=== PATIENT | female | born 1990 | race Caucasian/White ===

== ENCOUNTER 2018-02-04 21:23 | Inpatient (IN) | payer SELFPAY ==
[~2018-02-04] VITALS: Ht 167.6 cm; Wt 65.6 kg
[2018-02-04] VITALS (7 sets, daily range): BP systolic 124–138; BP diastolic 81–99; PULSE 65–99; RESP 16; TEMP 96.4; O2SAT 95–100
[2018-02-04] MEDS ORDERED: FLUMAZENIL 0.5 MG/5 ML VIAL ONE (21:31)
[2018-02-04] MEDS ORDERED: ETOMIDATE 40 MG/20 ML VIAL ONE (21:35)
[2018-02-04] MEDS ORDERED: PROPOFOL 1000 MG/100 ML INJ 100 ML ONE (21:41)
[2018-02-04] MEDS ORDERED: SODIUM CHLOR 0.9% 1000 ML INJ 1,000 ML IV ONE (21:45)
[2018-02-04] MEDS ORDERED: SUCCINYLCHOLINE CHLORIDE 100 MG/5 ML SYRINGE IV PUSH ONE (21:45)
[2018-02-04] MEDS ORDERED: PROPOFOL 1000 MG/100 ML INJ 100 ML IV PRN (21:45)
[2018-02-04] MEDS ORDERED: NALOXONE HCL 2 MG/2 ML VIAL IV PUSH ONE (21:45)
--- NOTE | 2018-02-04 21:56 | PD ---
HPI Chief Complaint: OD/ Ingestion Time Seen by Provider: 21:40 Travel History International Travel<30 days: No Contact w/Intl Traveler<30days: No Traveled to known affect area: No History of Present Illness HPI Per EMS patient was found poorly responsive with a GCS of 3, they were unable to start an IV, they gave 2 mg of Narcan IM into her thigh, without any response. They continue to bring the patient over to the emergency department for further care. Unable to obtain any further information due to the patient' s condition PFS Past Medical History Medical History: Unable to Obtain Diminished Hearing: No Tetanus Vaccination: Unknown ?: Unknown LMP: unk Past Surgical History Surgical History: Unable to Obtain Social History Alcohol Use: Yes Tobacco Use: Yes Substance Use: Yes Allergies-Medications (Allergen,Severity, Reaction): Coded Allergies: No Allergy Information Available (Unverified , 02/04/18) GCS Review of Systems ROS Limitations: Clinical Condition, Altered Mental Status General / Constitutional: No: Fever Eyes: No: Visual changes HENT: No: Headaches Cardiovascular: Positive: Palpitations Respiratory: Positive: Shortness of Breath Gastrointestinal: No: Abdominal Pain Genitourinary: No: Dysuria Musculoskeletal: No: Pain Skin: No Rash Neurologic: No: Weakness Psychiatric: No: Depression Endocrine: No: Polydipsia Hematologic/Lymphatic: No: Easy Bruising Physical Exam Narrative GENERAL: SKIN: Warm and dry. HEAD: Atraumatic. Normocephalic. EYES: Pupils equal and round. No scleral icterus. No injection or drainage. Dilated pupils 6 mm bilaterally ENT: No nasal bleeding or discharge. Mucous membranes pink and moist. Patient was not clearing her or tolerating her oral secretions well, making gagging noises NECK: Trachea midline. No JVD. CARDIOVASCULAR: Tachycardic rate but regular rhythm RESPIRATORY: No accessory muscle use. CRACKLES TO RLL (POSS ASPIRATION) GASTROINTESTINAL: Abdomen soft, non-tender, nondistended. MUSCULOSKELETAL: Extremities without clubbing, cyanosis, or edema. No obvious deformities. NEUROLOGICAL: Patient arrived with a GCS of 8, not improving despite the use of Narcan and Romazicon. Patient not protecting her airway and not tolerating her own oral secretions decision made to intubate to guard airway Data Data Last Documented VS Vital Signs Date Time Temp Pulse Resp B/P (MAP) Pulse Ox O2 Delivery O2 Flow Rate FiO2 02/04/18 23:09 65 128/99 (109) 100 Ventilator 02/04/18 22:53 16 4.00 02/04/18 21:52 96.4 02/04/18 21:40 50 Orders Orders Flumazenil Inj (Romazicon Inj) (02/04/18 21:31) Etomidate Inj (Amidate Inj) (02/04/18 21:35) Chest, Single Ap (02/04/18 ) Propofol 1000 Mg/100 Ml Inj (Diprivan 10 (02/04/18 21:41) Electrocardiogram (02/04/18 21:40) Complete Blood Count With Diff (02/04/18 21:40) Comprehensive Metabolic Panel (02/04/18 21:40) Troponin I (02/04/18 21:40) Prothrombin Time / Inr (Pt) (02/04/18 21:40) Act Partial Throm Time (Ptt) (02/04/18 21:40) Arterial Blood Gas (Abg) (02/04/18 21:40) Blood Culture (02/04/18 21:40) Lipase (02/04/18 21:40) Urinalysis - C+S If Indicated (02/04/18 21:40) Thyroid Stimulating Hormone (02/04/18 21:40) Ct Brain W/O Iv Contrast(Rout) (02/04/18 21:40) Iv Access Insert/Monitor (02/04/18 21:40) Ecg Monitoring (02/04/18 21:40) Oxygen Administration (02/04/18 21:40) Oximetry (02/04/18 21:40) Urinary Catheter Insert/Apply (02/04/18 21:40) Latesha-Gastric Tube Insert/Mon (02/04/18 21:40) Ed Urine Pregnancytest Poc (02/04/18 21:40) Drug Screen, Random Urine (02/04/18 21:40) Alcohol (Ethanol) (02/04/18 21:40) Salicylates (Aspirin) (02/04/18 21:40) Tylenol (Acetaminophen) (02/04/18 21:40) Propofol 1000 Mg/100 Ml Inj (Diprivan 10 (02/04/18 21:45) Naloxone Inj (Narcan Inj) (02/04/18 21:45) Succinylcholine Inj (Quelicin Inj) (02/04/18 21:45) Sodium Chlor 0.9% 1000 Ml Inj (Ns 1000 M (02/04/18 21:45) Lactic Acid Sepsis Protocol (02/04/18 21:45) Labs Laboratory Tests Test 02/04/18 22:00 02/04/18 22:09 02/04/18 22:25 White Blood Count 10.7 TH/MM3 Red Blood Count 5.62 MIL/MM3 Hemoglobin 17.1 GM/DL Hematocrit 50.8 % Mean Corpuscular Volume 90.4 FL Mean Corpuscular Hemoglobin 30.5 PG Mean Corpuscular Hemoglobin Concent 33.7 % Red Cell Distribution Width 14.6 % Platelet Count 369 TH/MM3 Mean Platelet Volume 9.5 FL Neutrophils (%) (Auto) 79.0 % Lymphocytes (%) (Auto) 12.7 % Monocytes (%) (Auto) 7.0 % Eosinophils (%) (Auto) 0.9 % Basophils (%) (Auto) 0.4 % Neutrophils # (Auto) 8.4 TH/MM3 Lymphocytes # (Auto) 1.4 TH/MM3 Monocytes # (Auto) 0.8 TH/MM3 Eosinophils # (Auto) 0.1 TH/MM3 Basophils # (Auto) 0.0 TH/MM3 CBC Comment DIFF FINAL Differential Comment Prothrombin Time 10.2 SEC Prothromb Time International Ratio 1.0 RATIO Activated Partial Thromboplast Time 25.7 SEC Urine Color YELLOW Urine Turbidity CLEAR Urine pH 5.0 Urine Specific [place] 1.009 Urine Protein NEG mg/dL Urine Glucose (UA) NEG mg/dL Urine Ketones 20 mg/dL Urine Occult Blood NEG Urine Nitrite NEG Urine Bilirubin NEG Urine Urobilinogen LESS THAN 2 mg/dL Urine Leukocyte Esterase NEG Urine RBC 1 /hpf Urine WBC LESS THAN 1 /hpf Urine Squamous Epithelial Cells <1 /hpf Urine Hyaline Casts 1 /lpf Urine Mucus FEW /lpf Microscopic Urinalysis Comment CULT NOT INDICATED Blood Urea Nitrogen 9 MG/DL Creatinine 0.90 MG/DL Random Glucose 80 MG/DL Total Protein 10.2 GM/DL Albumin 4.7 GM/DL Calcium Level 10.4 MG/DL Alkaline Phosphatase 66 U/L Aspartate Amino Transf (AST/SGOT) 112 U/L Alanine Aminotransferase (ALT/SGPT) 106 U/L Total Bilirubin 0.7 MG/DL Sodium Level 140 MEQ/L Potassium Level 4.0 MEQ/L Chloride Level 104 MEQ/L Carbon Dioxide Level 23.8 MEQ/L Anion Gap 12 MEQ/L Estimat Glomerular Filtration Rate 74 ML/MIN Troponin I LESS THAN 0.02 NG/ML Lipase 111 U/L Thyroid Stimulating Hormone 3rd Gen 0.362 uIU/ML Urine Opiates Screen POS Acetaminophen Level LESS THAN 2.0 MCG/ML Urine Barbiturates Screen NEG Urine Amphetamines Screen POS Urine Benzodiazepines Screen NEG Urine Cocaine Screen POS Urine Cannabinoids Screen NEG Ethyl Alcohol Level LESS THAN 3 MG/DL Blood Gas Puncture Site RT RADIAL Blood Gas Patient Temperature 98.6 Blood Gas HCO3 25 mmol/L Blood Gas Base Excess 1.0 mmol/L Blood Gas Oxygen Saturation 94 % Arterial Blood pH 7.43 Arterial Blood Partial Pressure CO2 38 mmHg Arterial Blood Partial Pressure O2 75 mmHG Arterial Blood Oxygen Content 21.3 Vol % Arterial Blood Carboxyhemoglobin 1.5 % Arterial Blood Methemoglobin 0.5 % Blood Gas Hemoglobin 16.1 G/DL Oxygen Delivery Device VENTILATOR Blood Gas Ventilator Setting PRVC/AC Blood Gas Inspired Oxygen 50 % Lactic Acid Level 1.5 mmol/L MDM Medical Decision Making Medical Screen Exam Complete: Yes Emergency Medical Condition: Yes Medical Record Reviewed: Yes Differential Diagnosis Altered mental status due to possible heroin overdose versus benzo overdose versus electrolyte abnormalities versus intracranial hemorrhage versus sepsis versus pneumonia versus UTI Narrative Course CBC shows no leukocytosis, no left shift, hemoconcentration 17/51, platelet count within normal limits of 369,005 ABG after intubation shows a pH of 7.43/PCO2 38/PaO2 of 75 and that was on PRVC 50% FiO2 on a ventilator Coagulation profile is within normal limits UA is not consistent with a UTI Electrolytes are all within normal limits, normal kidney and pancreatic functions. TSH screen was within normal limits Slight elevations of the patient's AST 112, ALT 106, but with normal bilirubin of 0.7 and alkaline phosphatase of 66 Lactic acid 1.5 First set of cardiac enzymes negative Tox screen was positive for opiates amphetamines and cocaine Critical Care Narrative CRITICAL CARE NOTE: With evaluation of the patient, labs, EKG, receipt of radiologic studies, administration of medications, reevaluation the patient and discussion of the patient with the admitting physicians, the total critical care time was [45] minutes. Time to perform other separately billable procedures was not included in the critical care time. Procedures Procedure Narrative After the risks and benefits were discussed the following procedure was performed: INTUBATION: The patient was put in optimal position for the procedure. Rapid sequence intubation was initiated by me using [20] milligrams of etomidate IV and 100 milligrams of succinylcholine IV. The patient was intubated with a [7.5 ] cuffed endotracheal tube. Tube placement was confirmed by visualization of the tube and balloon passing through the cords, capnometry and subsequent chest x-ray. Breath sounds were equal and well aerated bilaterally postintubation. No borborygmi heard over stomach. Patient tolerated procedure well. Diagnosis Primary Impression: Altered mental status possible overdose requiring intubation Additional Impression: Polysubstance abuse Admitting Information Admitting Physician Requests: Admit Yonny Tillman MD Feb 04, 2018 21:56
[2018-02-04 22:27] LABS: AUTOMATED NEUTROPHIL # 8.4 TH/MM3 (1.8-7.7); BASOPHIL % 0.4 % (0.0-2.0); EOSINOPHIL # 0.1 TH/MM3 (0-0.4); EOSINOPHIL % 0.9 % (0.0-4.0); HEMATOCRIT 50.8 % (35.0-46.0); HEMOGLOBIN 17.1 GM/DL (11.6-15.3); LYMPH % 12.7 % (9.0-44.0); LYMPHOCYTE # 1.4 TH/MM3 (1.0-4.8); MEAN CELL VOLUME 90.4 FL (80.0-100.0); MEAN CORPUSCULAR HEMOGLOBIN 30.5 PG (27.0-34.0); MEAN CORPUSCULAR HGB CONC 33.7 % (32.0-36.0); MEAN PLATELET VOLUME 9.5 FL (7.0-11.0); MONOCYTE # 0.8 TH/MM3 (0-0.9); PLATELET COUNT 369 TH/MM3 (150-450); RED BLOOD COUNT 5.62 MIL/MM3 (4.00-5.30); RED CELL DISTRIBUTION WIDTH 14.6 % (11.6-17.2); WHITE BLOOD COUNT 10.7 TH/MM3 (4.0-11.0)
--- NOTE | 2018-02-04 22:32 | RADRPT ---
EXAM DATE: 02/04/2018 10:29 PM EDT AGE/SEX: 28 years / Female INDICATIONS: Lower extremity swelling and short of breath for 3 days. CLINICAL DATA: This is the patient's initial encounter. Patient reports that signs and symptoms have been present for 1 day and indicates a pain score of Nonresponsive. MEDICAL/SURGICAL HISTORY: Non-responsive. Abdominal aortic aneurysm repair. COMPARISON: No prior exams available for comparison. FINDINGS: A single AP view of the chest demonstrates the lungs to be symmetrically aerated without evidence of mass, infiltrate or effusion. Nasogastric tube with tip likely in stomach. There appears to be an end otracheal tube although its tip is not well seen which may be 4 cm from cecelia. The cardiomediastinal contours are unremarkable. Osseous structures are intact. CONCLUSION: No acute cardiopulmonary disease Electronically signed by: Enrique Tim MD 02/04/2018 10:30 PM EDT
[2018-02-04 22:38] LABS: PROTHROMBIN TIME - PATIENT 10.2 SEC (9.8-11.6)
[2018-02-04 22:42] LABS: ALBUMIN 4.7 GM/DL (3.4-5.0); AST (GOT) 112 U/L (15-37); BICARBONATE 23.8 MEQ/L (21.0-32.0); BLOOD UREA NITROGEN 9 MG/DL (7-18); CALCIUM 10.4 MG/DL (8.5-10.1); CHLORIDE 104 MEQ/L (98-107); GLOMERULAR FILTRATION RATE 74 ML/MIN (>89); GLUCOSE,RANDOM 80 MG/DL (74-106); SODIUM (NA) 140 MEQ/L (136-145)
[2018-02-04 22:54] LABS: ALKALINE PHOSPHATASE 66 U/L (45-117); ALT (GPT) 106 U/L (10-53); TOTAL BILIRUBIN ADULT 0.7 MG/DL (0.2-1.0); TOTAL PROTEIN 10.2 GM/DL (6.4-8.2); TROPONIN I LESS THAN 0.02 NG/ML (0.02-0.05)
[2018-02-04 22:58] LABS: ACETAMINOPHEN LESS THAN 2.0 MCG/ML (10.0-30.0)
[2018-02-04 23:09] LABS: BILIRUBIN, URINE NEG (NEG); BLOOD, URINE NEG (NEG); GLUCOSE,URINE NEG (NEG); HYALINE CAST, URINE 1 /lpf (RARE); KETONE, URINE 20 mg/dL (NEG); MUCUS URINE FEW /lpf (OCC); NITRITE,URINE NEG (NEG); SQUAMOUS EPITHELIAL CELL URINE <1 /hpf (0-5); URINE COLOR YELLOW (YELLW/STRAW); URINE LEUKOCYTE ESTERASE NEG (NEG)
--- NOTE | 2018-02-04 23:40 | HHI.HP ---
[facility] Service Critical Care Medicine Primary Care Physician Unknown Admission Diagnosis Overdose/polypharmacy Diagnosis: (1) Acute respiratory failure Diagnosis: Principal (2) Cocaine abuse Diagnosis: Principal (3) Encephalopathy acute Diagnosis: Principal (4) Polycythemia Diagnosis: Secondary (5) Serum calcium elevated Diagnosis: Secondary (6) Elevated transaminase level Diagnosis: Secondary (7) Opiate overdose Diagnosis: Principal (8) Amphetamine abuse Diagnosis: Principal (9) Elevated total protein Diagnosis: Secondary Chief Complaint: Patient found unresponsive Travel History International Travel<30 Days: No Contact w/Intl Traveler <30 Da: No Traveled to Known Affected Are: No History of Present Illness This is a 28-year-old female. Date of admission 02/04/2018. Past medical history is diet-controlled diabetes. Patient presents to [facility] of the following history. Per EMS report, patient was found unresponsive. GCS around 3. According to the people where she was found she has a known history of heroin use according to EMS. She had a bottle of baclofen 10 mg at her side. She received 2 mg IM naloxone in her right thigh without response. She received flumazenil 0.5 mg and naloxone 2 mg without response here at [facility]. She is emergently intubated with 40 mg etomidate and 100 mg succinylcholine. Patient's urine drug is positive for opiates, amphetamines and cocaine. Alcohol level less than 3. Elevated transaminases. She is currently on a propofol drip at 50 migrans per kilogram per minute. CT brain currently pending at time of dictation. She is very agitated and moves all 4 extremities spontaneously but not following commands. She has 2 noticeable track bhatia her left antecubital region. Dttet-[id number] urine screen negative Review of Systems ROS Limitations: Intubated Past Family Social History Allergies: Coded Allergies: No Allergy Information Available (Unverified , 02/04/18) GCS Past Medical History Diabetes mellitus Past Surgical History Appendectomy Reported Medications Unknown Active Ordered Medications Reviewed in EMR Family History Not previously documented Social History Urine drug screen positive for opiates/amphetamines and cocaine Physical Exam Vital Signs Vital Signs Date Time Temp Pulse Resp B/P (MAP) Pulse Ox O2 Delivery O2 Flow Rate FiO2 02/04/18 23:09 65 128/99 (109) 100 Ventilator 02/04/18 22:53 16 97 Nasal Cannula 4.00 02/04/18 22:52 84 16 124/99 (107) 100 Ventilator 02/04/18 22:34 85 132/99 (110) 98 Ventilator 02/04/18 22:08 99 134/94 (107) 98 Ventilator 02/04/18 21:52 96.4 90 16 138/87 (104) Ventilator 02/04/18 21:40 95 50 02/04/18 21:32 91 16 136/81 (99) 96 Physical Exam GENERAL: 28-year-old female currently orotracheally intubated SKIN: Warm and dry. Tattoo on dorsum right foot. To track bhatia in the left antecubital region. She has Enrike bandage around her right antecubital region. HEAD: Atraumatic. Normocephalic. EYES: Pupils equal and round about 4 mm bilaterally and reactive. No scleral icterus. No injection or drainage. ENT: No nasal bleeding or discharge. Mucous membranes pink and moist. NECK: Trachea midline. No JVD. CARDIOVASCULAR: Regular rate and rhythm. S1, S2. No S4. Possible 1/6 murmur RESPIRATORY: No accessory muscle use. Clear to auscultation. Breath sounds equal bilaterally. GASTROINTESTINAL: Abdomen soft, non-tender, nondistended. Hypoactive bowel sounds are appreciated MUSCULOSKELETAL: Extremities significant peripheral edema. No obvious deformities. NEUROLOGICAL: Cranial nerves II through XII appear to be grossly intact. Strength is 5 out of 5 and moves all 4 extremities spontaneously but not to command. Positive gag and cough and corneal reflex. Laboratory Laboratory Tests Test 02/04/18 22:00 02/04/18 22:09 02/04/18 22:25 White Blood Count 10.7 Red Blood Count 5.62 Hemoglobin 17.1 Hematocrit 50.8 Mean Corpuscular Volume 90.4 Mean Corpuscular Hemoglobin 30.5 Mean Corpuscular Hemoglobin Concent 33.7 Red Cell Distribution Width 14.6 Platelet Count 369 Mean Platelet Volume 9.5 Neutrophils (%) (Auto) 79.0 Lymphocytes (%) (Auto) 12.7 Monocytes (%) (Auto) 7.0 Eosinophils (%) (Auto) 0.9 Basophils (%) (Auto) 0.4 Neutrophils # (Auto) 8.4 Lymphocytes # (Auto) 1.4 Monocytes # (Auto) 0.8 Eosinophils # (Auto) 0.1 Basophils # (Auto) 0.0 CBC Comment DIFF FINAL Differential Comment Prothrombin Time 10.2 Prothromb Time International Ratio 1.0 Activated Partial Thromboplast Time 25.7 Urine Color YELLOW Urine Turbidity CLEAR Urine pH 5.0 Urine Specific [place] 1.009 Urine Protein NEG Urine Glucose (UA) NEG Urine Ketones 20 Urine Occult Blood NEG Urine Nitrite NEG Urine Bilirubin NEG Urine Urobilinogen LESS THAN 2 Urine Leukocyte Esterase NEG Urine RBC 1 Urine WBC LESS THAN 1 Urine Squamous Epithelial Cells <1 Urine Hyaline Casts 1 Urine Mucus FEW Microscopic Urinalysis Comment CULT NOT INDICATED Blood Urea Nitrogen 9 Creatinine 0.90 Random Glucose 80 Total Protein 10.2 Albumin 4.7 Calcium Level 10.4 Alkaline Phosphatase 66 Aspartate Amino Transf (AST/SGOT) 112 Alanine Aminotransferase (ALT/SGPT) 106 Total Bilirubin 0.7 Sodium Level 140 Potassium Level 4.0 Chloride Level 104 Carbon Dioxide Level 23.8 Anion Gap 12 Estimat Glomerular Filtration Rate 74 Troponin I LESS THAN 0.02 Lipase 111 Thyroid Stimulating Hormone 3rd Gen 0.362 Urine Opiates Screen POS Acetaminophen Level LESS THAN 2.0 Urine Barbiturates Screen NEG Urine Amphetamines Screen POS Urine Benzodiazepines Screen NEG Urine Cocaine Screen POS Urine Cannabinoids Screen NEG Ethyl Alcohol Level LESS THAN 3 Blood Gas Puncture Site RT RADIAL Blood Gas Patient Temperature 98.6 Blood Gas HCO3 25 Blood Gas Base Excess 1.0 Blood Gas Oxygen Saturation 94 Arterial Blood pH 7.43 Arterial Blood Partial Pressure CO2 38 Arterial Blood Partial Pressure O2 75 Arterial Blood Oxygen Content 21.3 Arterial Blood Carboxyhemoglobin 1.5 Arterial Blood Methemoglobin 0.5 Blood Gas Hemoglobin 16.1 Oxygen Delivery Device VENTILATOR Blood Gas Ventilator Setting PRVC/AC Blood Gas Inspired Oxygen 50 Lactic Acid Level 1.5 Date/Time Source Procedure Growth Status 02/04/18 22:25 Blood Peripheral Aerobic Blood Culture Pending Received 02/04/18 22:25 Blood Peripheral Anaerobic Blood Culture Pending Received Result Diagram: 02/04/18219902/04/18 220 Imaging Last Impressions Chest X-Ray 02/04/18 0000 Signed Impressions: CONCLUSION: No acute cardiopulmonary disease Septic Shock Reassessment Septic shock perfusion: reassessment completed Caprini VTE Risk Assessment Caprini VTE Risk Assessment: Mod/High Risk (score >= 2) Caprini Risk Assessment Model Point Value = 1 Point Value = 2 Point Value = 3 Point Value = 5 Age 41-60 Minor surgery BMI > 25 kg/m2 Swollen legs Varicose veins or History of unexplained or recurrent spontaneous Oral contraceptives or hormone replacement Sepsis (< 1 month) Serious lung disease, including pneumonia (< 1 month) Abnormal pulmonary function Acute myocardial infarction Congestive heart failure (< 1 month) History of inflammatory bowel disease Medical patient at bed rest Age 61-74 Arthroscopic surgery Major open surgery (> 45 min) Laparoscopic surgery (> 45 min) Malignancy Confined to bed (> 72 hours) Immobilizing plaster cast Central venous access Age >= 75 History of VTE Family history of VTE Factor V Leiden Prothrombin [id number] Lupus anticoagulant Anticardiolipin antibodies Elevated serum homocysteine Heparin-induced thrombocytopenia Other congenital or acquired thrombophilia Stroke (< 1 month) Elective arthroplasty Hip, pelvis, or leg fracture Acute spinal cord injury (< 1 month) Prophylaxis Regimen Total Risk Factor Score Risk Level Prophylaxis Regimen 0-1 Low Early ambulation 2 Moderate Order ONE of the following: *Sequential Compression Device (SCD) *Heparin 5000 units SQ BID 3-4 Higher Order ONE of the following medications: *Heparin 5000 units SQ TID *Enoxaparin/Lovenox 40 mg SQ daily (WT < 150 kg, CrCl > 30 mL/min) *Enoxaparin/Lovenox 30 mg SQ daily (WT < 150 kg, CrCl > 10-29 mL/min) *Enoxaparin/Lovenox 30 mg SQ BID (WT < 150 kg, CrCl > 30 mL/min) AND/OR *Sequential Compression Device (SCD) 5 or more Highest Order ONE of the following medications: *Heparin 5000 units SQ TID (Preferred with Epidurals) *Enoxaparin/Lovenox 40 mg SQ daily (WT < 150 kg, CrCl > 30 mL/min) *Enoxaparin/Lovenox 30 mg SQ daily (WT < 150 kg, CrCl > 10-29 mL/min) *Enoxaparin/Lovenox 30 mg SQ BID (WT < 150 kg, CrCl > 30 mL/min) AND *Sequential Compression Device (SCD) Assessment and Plan Assessment and Plan Neuro/Psych: Acute delirium/toxic metabolic encephalopathy UDS + opiates/cocaine and amphetamines Currently on propofol drip at 50 migrans per kilogram per minute. Fentanyl drip written for as well Goal of RA SS -[address] brain currently pending UDS + opiates/cocaine and amphetamines CV: Currently normal saline 84 cc an hour Not requiring vasopressors and/or antihypertensives 2D echocardiogram ordered with IV drug use Troponin less than 0.02 Resp: Acute respiratory failure [facility] 16/500/08/22/39 Ventilator bundle Albuterol/ipratropium aerosols every 4 hours with albuterol aerosols every 2 hours as needed dyspnea Spontaneous breathing trials when clinically indicated GI: Elevated transaminases Elevated total protein N.p.o. status NG/OGT to low intermittent wall suction Lansoprazole for GI prophylaxis Docusate sodium/senna 1 tablet twice daily for bowel regimen Check a hepatitis panel and CPK and recheck liver function tests in a.m. along with LDH : Varner catheter for accurate I's and O's in a critically ill patient Endo: Novulog sliding scale insulin/low regimen with Accu-Cheks every 6 hours to maintain euglycemia TSH 0.36 Renal: Creatinine currently within normal limits Monitor urine output Accurate I's and O Heme: Polycythemia -likely hemoconcentration Recheck CBC in a.m. Coags within normal ID: Blood cultures 2 ordered. UA negative for acute infection FEN: Hypercalcemia Replace electrolytes as clinically indicated per ICU electrolyte protocol Calcium will be checked in a.m. MSK: PT evaluate and treat Access Utilized peripheral IV. Central line if indicated- Prophylaxis -GI -lansoprazole -DVT -SCD/holding pharmacological prophylaxis pending CT brain Level 3 admission Code Status Full code Discussed Condition With ED physician. Dr. Tillman. Care plan discussed and all questions answered. No family available. Problem Qualifiers (1) Acute respiratory failure: Qualified Codes: J96.00 - Acute respiratory failure, unspecified whether with hypoxia or hypercapnia (2) Opiate overdose: Qualified Codes: T40.604A - Poisoning by unspecified narcotics, undetermined, initial encounter Villa Little MD Feb 04, 2018 23:40
[2018-02-04] MEDS ORDERED: SODIUM CHLOR 0.9% 1000 ML INJ 1,000 ML IV SCH (23:41)
[2018-02-04] MEDS ORDERED: POTASSIUM CHLOR 40 MEQ PREMIX 100 ML IV PRN ×2 (23:45)
[2018-02-04] MEDS ORDERED: DEXTROSE 50% IN WATER 50 ML VIAL(D50) IV PUSH PRN (23:45)
[2018-02-04] MEDS ORDERED: POTASSIUM PHOSPHATE MONOBASIC 500 MG TAB PO PRN (23:45)
[2018-02-04] MEDS ORDERED: SODIUM CHLORIDE 0.9% FLUSH 10 ML FLUSH IV FLUSH PRN (23:45)
[2018-02-04] MEDS ORDERED: POTASSIUM CHLOR 20 MEQ PREMIX 100 ML IV PRN (23:45)
[2018-02-04] MEDS ORDERED: SENNOSIDES 8.6 MG TAB PO PRN (23:45)
[2018-02-04] MEDS ORDERED: ONDANSETRON ODT 4 MG TAB PO PRN (23:45)
[2018-02-04] MEDS ORDERED: MAGNESIUM OXIDE 400 MG TAB PO PRN (23:45)
[2018-02-04] MEDS ORDERED: MAGNESIUM HYDROXIDE SUSP 30 ML CUP PO PRN (23:45)
[2018-02-04] MEDS ORDERED: SODIUM PHOSPHATE INJ 30 MMOL in SODIUM CHLOR 0.9% 250 ML INJ 240 ML IV PRN (23:45)
[2018-02-04] MEDS ORDERED: POTASSIUM CHLORIDE 25 MEQ EFFERVESCENT TAB PO PRN (23:45)
[2018-02-04] MEDS ORDERED: fentaNYL DRIP 250 ML IV PRN (23:45)
[2018-02-04] MEDS ORDERED: NURSING INFORMATION XX SCH (23:45)
[2018-02-04] MEDS ORDERED: CHLORHEXIDINE GLUCONATE 2 % 1 PACK (2 CLOTHS) TOP PRN (23:45)
[2018-02-04] MEDS ORDERED: RESP: ALBUTEROL 2.5 MG/3 ML NEB (PRN) INH (23:45)
[2018-02-04] MEDS ORDERED: BISACODYL 10 MG SUPP RECTAL PRN (23:45)
[2018-02-04] MEDS ORDERED: GLUCAGON 1 MG/ML VIAL OTHER PRN (23:45)
[2018-02-04] MEDS ORDERED: POTASSIUM PHOSPHATE INJ 30 MMOL in SODIUM CHLOR 0.9% 250 ML INJ 250 ML IV PRN (23:45)
[2018-02-04] MEDS ORDERED: LACTULOSE SYRUP 20 GM/30 ML CUP PO PRN (23:45)
[2018-02-04] MEDS ORDERED: POTASSIUM PHOSPHATE MONOBASIC 500 MG TAB PO/TUBE PRN (23:45)
[2018-02-04] MEDS ORDERED: MAGNESIUM SULFATE INJ 2 GM in SODIUM CHLORIDE 0.9% INJ 96 ML IV PRN (23:45)
[2018-02-04] MEDS ORDERED: MAGNESIUM SULFATE INJ 4 GM in SODIUM CHLORIDE 0.9% INJ 92 ML IV PRN (23:45)
[2018-02-05] VITALS (19 sets, daily range): BP systolic 106–142; BP diastolic 62–93; PULSE 61–129; RESP 16–32; TEMP 97.3–101.7; O2SAT 96–100
--- NOTE | 2018-02-05 00:27 | RADRPT ---
EXAM DATE: 02/05/2018 12:15 AM EDT AGE/SEX: 28 years / Female INDICATIONS: Altered mental status; possible overdose CLINICAL DATA: This is the patient's initial encounter. Patient reports that signs and symptoms have been present for 1 day and indicates a pain score of Nonresponsive. MEDICAL/SURGICAL HISTORY: . Substance abuse. None. RADIATION DOSE: 56.35 CTDI (mGy) COMPARISON: No prior exams available for comparison. TECHNIQUE: CT of the head without contrast. Using automated exposure control and adjustment of the mA and/or kV according to patient size, radiation dose was kept as low as reasonably achievable to ob tain optimal diagnostic quality images. DICOM format image data is available electronically for revi ew and comparison. FINDINGS: Cerebrum: The ventricles are normal for age. No evidence of midline shift, mass lesion, hemorrhage or acute infarction. No extraaxial fluid collections are seen. Posterior Fossa: The cerebellum and brainstem are intact. The 4th ventricle is midline. The cerebe llopontine angle is unremarkable. Extracranial: The visualized portion of the orbits is intact. Skull: The calvaria is intact. No evidence of skull fracture. CONCLUSION: 1. Negative CT Head non contrast. Electronically signed by: Reji Juan MD 02/05/2018 12:26 AM EDT
[2018-02-05] MEDS: RESP: ALBUTEROL 2.5 MG/IPRATROPIUM 0.5 MG NEB (SCH) INH ×6 (00:39→22:53)
[2018-02-05] MEDS: MIDAZOLAM 50 MG/50 ML INJ 50 ML IV PRN ×2 (00:54→16:04)
[2018-02-05] MEDS: PROPOFOL 1000 MG/100 ML INJ 100 ML IV PRN ×2 (02:36→10:04)
[2018-02-05] MEDS: CHLORHEXIDINE GLUCONATE 2 % 1 PACK (2 CLOTHS) TOP SCH (04:00)
[2018-02-05 04:26] LABS: AUTOMATED NEUTROPHIL # 10.7 TH/MM3 (1.8-7.7); BASOPHIL % 0.3 % (0.0-2.0); HEMATOCRIT 47.8 % (35.0-46.0); HEMOGLOBIN 15.9 GM/DL (11.6-15.3); LYMPH % 9.7 % (9.0-44.0); LYMPHOCYTE # 1.3 TH/MM3 (1.0-4.8); MEAN CELL VOLUME 89.7 FL (80.0-100.0); MEAN CORPUSCULAR HEMOGLOBIN 29.9 PG (27.0-34.0); MEAN CORPUSCULAR HGB CONC 33.3 % (32.0-36.0); MEAN PLATELET VOLUME 9.2 FL (7.0-11.0); MONO % 10.6 % (0.0-8.0); MONOCYTE # 1.4 TH/MM3 (0-0.9); NEUT % 79.4 % (16.0-70.0); PLATELET COUNT 366 TH/MM3 (150-450); RED BLOOD COUNT 5.33 MIL/MM3 (4.00-5.30); RED CELL DISTRIBUTION WIDTH 14.4 % (11.6-17.2); WHITE BLOOD COUNT 13.5 TH/MM3 (4.0-11.0)
[2018-02-05 05:02] LABS: ALBUMIN 4.2 GM/DL (3.4-5.0); ALKALINE PHOSPHATASE 55 U/L (45-117); ALT (GPT) 90 U/L (10-53); AST (GOT) 100 U/L (15-37); BICARBONATE 26.2 MEQ/L (21.0-32.0); BLOOD UREA NITROGEN 11 MG/DL (7-18); CALCIUM 9.3 MG/DL (8.5-10.1); CHLORIDE 106 MEQ/L (98-107); CREATININE 0.71 MG/DL (0.50-1.00); GLOMERULAR FILTRATION RATE 97 ML/MIN (>89); GLUCOSE,RANDOM 80 MG/DL (74-106); MAGNESIUM 2.3 MG/DL (1.5-2.5); SODIUM (NA) 146 MEQ/L (136-145); TOTAL BILIRUBIN ADULT 0.8 MG/DL (0.2-1.0); TOTAL PROTEIN 8.7 GM/DL (6.4-8.2)
[2018-02-05] MEDS: 1/2 NS + KCL 20 MEQ INJ 1,000 ML IV SCH ×2 (05:47→20:18)
[2018-02-05] MEDS ORDERED: POTASSIUM CHLORIDE 20 MEQ PWD PACKET PO ONE (06:00)
[2018-02-05] MEDS: INSULIN ASPART SUPPLEMENTAL SCALE SQ SCH ×2 (06:00)
[2018-02-05] MEDS: CHLORHEXIDINE 0.12% (ORAL KIT) 15 ML CUP MT SCH ×2 (08:00→20:00)
--- NOTE | 2018-02-05 08:55 | HHI.CCPN ---
Subjective Remarks/Hospital Course 02/04: This is a 28-year-old female. Date of admission 02/04/2018. Past medical history is diet-controlled diabetes. Patient presents to [facility] of the following history. Per EMS report, patient was found unresponsive. GCS around 3. According to the people where she was found she has a known history of heroin use according to EMS. She had a bottle of baclofen 10 mg at her side. She received 2 mg IM naloxone in her right thigh without response. She received flumazenil 0.5 mg and naloxone 2 mg without response here at [facility]. She is emergently intubated with 40 mg etomidate and 100 mg succinylcholine. Patient's urine drug is positive for opiates, amphetamines and cocaine. Alcohol level less than 3. Elevated transaminases. She is currently on a propofol drip at 50 migrans per kilogram per minute. CT brain currently pending at time of dictation. She is very agitated and moves all 4 extremities spontaneously but not following commands. She has 2 noticeable track bhatia her left antecubital region. [id number] urine screen negative 02/05: Remains sedated, orally intubated on mechanical ventilation. Objective Vital Signs Date Time Temp Pulse Resp B/P (MAP) Pulse Ox O2 Delivery O2 Flow Rate FiO2 02/05/18 07:36 100 40 02/05/18 06:00 106 02/05/18 04:00 99.3 21 142/92 (109) 02/04/18 23:09 Ventilator 02/04/18 22:53 4.00 Intake and Output 02/05/18 02/05/18 02/06/18 08:00 16:00 00:00 Intake Total 999 ml Output Total 500 ml Balance 499 ml Result Diagram: 02/05/18 0413 02/05/18 0413 Other Results Laboratory Tests Test 02/04/18 22:09 Blood Gas Puncture Site RT RADIAL Blood Gas Patient Temperature 98.6 Blood Gas HCO3 25 mmol/L (22-26) Blood Gas Base Excess 1.0 mmol/L (-2-2) Blood Gas Oxygen Saturation 94 % (90-100) Arterial Blood pH 7.43 (7.380-7.420) Arterial Blood Partial Pressure CO2 38 mmHg (38-42) Arterial Blood Partial Pressure O2 75 mmHG (61-120) Arterial Blood Oxygen Content 21.3 Vol % (12.0-20.0) Arterial Blood Carboxyhemoglobin 1.5 % (0-4) Arterial Blood Methemoglobin 0.5 % (0-2) Blood Gas Hemoglobin 16.1 G/DL (12.0-16.0) Oxygen Delivery Device VENTILATOR Blood Gas Ventilator Setting PRVC/AC Blood Gas Inspired Oxygen 50 % Imaging Last Impressions Chest X-Ray 02/04/18 0000 Signed Impressions: CONCLUSION: No acute cardiopulmonary disease Objective Remarks GENERAL: 28-year-old female currently orotracheally intubated SKIN: Warm and dry. Tattoo on dorsum right foot. To track bhatia in the left antecubital region. She has Enrike bandage around her right antecubital region. HEAD: Atraumatic. Normocephalic. EYES: Pupils equal and round about 4 mm bilaterally and reactive. No scleral icterus. No injection or drainage. ENT: No nasal bleeding or discharge. Mucous membranes pink and moist. NECK: Trachea midline. No JVD. CARDIOVASCULAR: Regular rate and rhythm. S1, S2. No S4. Possible 1/6 murmur RESPIRATORY: No accessory muscle use. Clear to auscultation. Breath sounds equal bilaterally. GASTROINTESTINAL: Abdomen soft, non-tender, nondistended. Hypoactive bowel sounds are appreciated MUSCULOSKELETAL: Extremities significant peripheral edema. No obvious deformities. NEUROLOGICAL: Sedated, arousable, orally intubated on mechanical ventilation, moving all 4 extremities, grossly nonfocal. A/P Assessment and Plan Neuro/Psych: Acute delirium/toxic metabolic encephalopathy UDS + opiates/cocaine and amphetamines Currently on propofol drip at 50 migrans per kilogram per minute. Fentanyl drip written for as well Goal of RA SS -[address] brain currently pending UDS + opiates/cocaine and amphetamines CV: Currently normal saline 84 cc an hour Not requiring vasopressors and/or antihypertensives 2D echocardiogram ordered with IV drug use Troponin less than 0.02 Resp: Acute respiratory failure [facility] 16/08/22/39 Ventilator bundle Albuterol/ipratropium aerosols every 4 hours with albuterol aerosols every 2 hours as needed dyspnea Spontaneous breathing trials to decide extubation once neurologic status improves. GI: Elevated transaminases Elevated total protein N.p.o. status NG/OGT to low intermittent wall suction Lansoprazole for GI prophylaxis Docusate sodium/senna 1 tablet twice daily for bowel regimen Check a hepatitis panel and CPK and recheck liver function tests in a.m. along with LDH : Varner catheter for accurate I's and O's in a critically ill patient Endo: Novolog sliding scale insulin/low regimen with Accu-Cheks every 6 hours to maintain euglycemia TSH 0.36 Renal: Creatinine currently within normal limits Monitor urine output Accurate I's and O Heme: Polycythemia -likely hemoconcentration Recheck CBC in a.m. Coags within normal ID: Blood cultures 2 ordered. UA negative for acute infection FEN: Hypercalcemia Replace electrolytes as clinically indicated per ICU electrolyte protocol Calcium will be checked in a.m. MSK: PT evaluate and treat Access Utilized peripheral IV. Central line if indicated- Prophylaxis -GI -lansoprazole -DVT -SCD/holding pharmacological prophylaxis pending CT brain Condition critical Time spent on critical care excluding procedures 30 minutes Toni Quan MD Feb 05, 2018 08:55
[2018-02-05] MEDS: ARTIFICIAL TEARS OPTH SOLN 15 ML BTL EACH EYE SCH ×3 (09:00→18:00)
[2018-02-05] MEDS: HEPARIN SODIUM - SQ 10,000 UNITS/ML VIAL SQ SCH ×2 (10:04→20:19)
[2018-02-05] MEDS: DOCUSATE SODIUM 50 MG/SENNA 8.6 MG TAB PO SCH ×2 (10:04→20:18)
[2018-02-05] MEDS: LANSOPRAZOLE SOLUTAB 30 MG TAB G-TUBE SCH (10:05)
[2018-02-05] MEDS ORDERED: ONDANSETRON ODT 4 MG TAB SL PRN (12:15)
[2018-02-05] MEDS ORDERED: Vancomycin Consult Pharmacy 1 EA OTHER SCH (12:15)
[2018-02-05] MEDS ORDERED: DEXMEDETOMIDINE HCL 200 MCG/2 ML VIAL IV PUSH ONE (12:15)
[2018-02-05] MEDS ORDERED: PIPERACIL-TAZO 3.375 GM PREMIX 50 ML IV ONE (12:45)
[2018-02-05] MEDS ORDERED: VANCOMYCIN INJ 1,000 MG in SODIUM CHLOR 0.9% 250 ML INJ 250 ML IV ONE (13:00)
--- NOTE | 2018-02-05 13:05 | ECHRPT ---
Indication: POSS SEPSIS, ENDOCARDITIS CONCLUSIONS Normal left ventricular size. EF=60% Wall thickness is normal. There is trace tricuspid valve regurgitation. The estimated pulmonary arterial pressure is 27.3 mmHg. Trivial pulmonary valve regurgitation. There is less than 50% respiratory change in dimension of the inferior vena cava (abnormal). BP: / HR: Rhythm: Sinus MEASUREMENTS (Male / Female) Normal Values Technical Quality:Fair 2D ECHO LV Diastolic Diameter PLAX 4.3 cm 4.2 - 5.9 / 3.9 - 5.3 cm LV Systolic Diameter PLAX 3.0 cm IVS Diastolic Thickness 0.8 cm 0.6 - 1.0 / 0.6 - 0.9 cm LVPW Diastolic Thickness 0.8 cm 0.6 - 1.0 / 0.6 - 0.9 cm LV Relative Wall Thickness 0.4 RV Internal Dim ED PLAX 1.9 cm LVOT Diameter 1.9 cm Aortic Root Diameter 2.6 cm LA Systolic Diameter LX 2.3 cm 3.0 - 4.0 / 2.7 - 3.8 cm M-MODE AV Cusp Separation MM 2.1 cm DOPPLER AV Peak Velocity 148.0 cm/s AV Peak Gradient 8.8 mmHg AV Mean Gradient 5.0 mmHg AV Velocity Time Integral 19.6 cm LVOT Peak Velocity 118.0 cm/s LVOT Peak Gradient 5.6 mmHg LVOT Velocity Time Integral 14.3 cm AV Area Cont Eq vti 2.1 cm AV Area Cont Eq pk 2.3 cm Mitral E Point Velocity 49.4 cm/s Mitral A Point Velocity 72.1 cm/s Mitral E to A Ratio 0.7 TR Peak Velocity 208.0 cm/s TR Peak Gradient 17.3 mmHg Right Atrial Pressure 10.0 mmHg Pulmonary Artery Systolic Pressu 27.3 mmHg Right Ventricular Systolic Press 27.3 mmHg PV Peak Velocity 88.0 cm/s PV Peak Gradient 3.1 mmHg FINDINGS LEFT VENTRICLE Normal left ventricular size. Wall thickness is normal. The left ventricular systolic function is normal with an estimated ejection fraction in the range of 60-65%. RIGHT VENTRICLE Normal right ventricular size and systolic function. LEFT ATRIUM The left atrial size is normal. RIGHT ATRIUM The right atrial size is normal. ATRIAL SEPTUM No atrial level shunt is demonstrated by color flow Doppler interrogation. AORTA The aortic root and proximal ascending aorta are normal in size on limited imaging. MITRAL VALVE Structurally normal mitral valve. No mitral valve stenosis or regurgitation. AORTIC VALVE Trileaflet aortic valve. No aortic valve stenosis or regurgitation. TRICUSPID VALVE There is trace tricuspid valve regurgitation. The estimated pulmonary arterial pressure is 27.3 mmHg. PULMONARY VALVE Trivial pulmonary valve regurgitation. VESSELS There is less than 50% respiratory change in dimension of the inferior vena cava (abnormal). PERICARDIUM No pericardial effusion. Konstantin Ortez MD, FACC, [facility] (Electronically Signed) Final Date:05 February 2018 13:04
[2018-02-05] MEDS: ACETAMINOPHEN 650 MG/20.3 ML UDC PO PRN ×2 (13:22→14:35)
[2018-02-05 13:52] LABS: BACTERIA, URINE OCC /hpf; BILIRUBIN, URINE NEG (NEG); BLOOD, URINE NEG (NEG); GLUCOSE,URINE NEG (NEG); KETONE, URINE 80 OR GREATER mg/dL (NEG); MUCUS URINE MANY /lpf (OCC); NITRITE,URINE NEG (NEG); URINE COLOR DARK-YELLOW (YELLW/STRAW); URINE LEUKOCYTE ESTERASE NEG (NEG)
[2018-02-05] MEDS: DEXMEDETOMIDINE INJ 200 MCG in SODIUM CHLORIDE 0.9% INJ 50 ML IV PRN (17:00)
[2018-02-05] MEDS: LEVOFLOXACIN 750 MG PREMIX INJ 150 ML IV SCH (17:26)
--- NOTE | 2018-02-05 17:39 | EKG ---
Date Performed: 02/04/2018 Time Performed: 21:55:48 PTAGE: 28 years EKG: Sinus rhythm WITH SINUS ARRHYTHMIA INCOMPLETE RIGHT BUNDLE BRANCH BLOCK MINIMAL ST DEPRESSION BORDERLINE ECG NO PREVIOUS TRACING DOCTOR: Emily Kennedy Interpretating Date/Time 02/05/2018 17:39:18
[2018-02-05] MEDS ORDERED: PIPERACIL-TAZO 3.375 GM PREMIX 50 ML IV SCH (18:00)
[2018-02-05] MEDS ORDERED: VANCOMYCIN INJ 1,000 MG in SODIUM CHLOR 0.9% 250 ML INJ 250 ML IV SCH (20:00)
[2018-02-05] MEDS: SODIUM CHLORIDE 0.9% FLUSH 10 ML FLUSH IV FLUSH SCH (20:17)
[2018-02-05] MEDS: MUPIROCIN 2% OINT 1 APPLIC/GM SYR NASAL SCH (20:18)
[2018-02-05] MEDS: VANCOMYCIN INJ 1,000 MG in SODIUM CHLOR 0.9% 250 ML INJ 250 ML IV SCH (20:18)
[2018-02-06] VITALS (17 sets, daily range): BP systolic 103–127; BP diastolic 56–85; PULSE 64–94; RESP 16–29; TEMP 98.4–99.6; O2SAT 100
[2018-02-06] MEDS: MIDAZOLAM 50 MG/50 ML INJ 50 ML IV PRN (00:58)
[2018-02-06] MEDS: RESP: ALBUTEROL 2.5 MG/IPRATROPIUM 0.5 MG NEB (SCH) INH ×6 (03:08→22:52)
[2018-02-06] MEDS: DEXMEDETOMIDINE INJ 200 MCG in SODIUM CHLORIDE 0.9% INJ 50 ML IV PRN ×4 (03:30→22:29)
[2018-02-06] MEDS: CHLORHEXIDINE GLUCONATE 2 % 1 PACK (2 CLOTHS) TOP SCH (03:32)
[2018-02-06] MEDS: VANCOMYCIN INJ 1,000 MG in SODIUM CHLOR 0.9% 250 ML INJ 250 ML IV SCH ×2 (05:14→13:47)
[2018-02-06] MEDS: INSULIN ASPART SUPPLEMENTAL SCALE SQ SCH ×4 (05:43→17:43)
[2018-02-06 05:46] LABS: AUTOMATED NEUTROPHIL # 14.4 TH/MM3 (1.8-7.7); BASOPHIL # 0.1 TH/MM3 (0-0.2); BASOPHIL % 0.3 % (0.0-2.0); EOSINOPHIL % 0.1 % (0.0-4.0); HEMATOCRIT 38.5 % (35.0-46.0); HEMOGLOBIN 12.7 GM/DL (11.6-15.3); LYMPH % 7.2 % (9.0-44.0); LYMPHOCYTE # 1.3 TH/MM3 (1.0-4.8); MEAN CELL VOLUME 89.7 FL (80.0-100.0); MEAN CORPUSCULAR HEMOGLOBIN 29.6 PG (27.0-34.0); MEAN PLATELET VOLUME 10.6 FL (7.0-11.0); MONO % 9.8 % (0.0-8.0); MONOCYTE # 1.7 TH/MM3 (0-0.9); NEUT % 82.6 % (16.0-70.0); PLATELET COUNT 225 TH/MM3 (150-450); RED BLOOD COUNT 4.29 MIL/MM3 (4.00-5.30); RED CELL DISTRIBUTION WIDTH 14.6 % (11.6-17.2); WHITE BLOOD COUNT 17.4 TH/MM3 (4.0-11.0)
[2018-02-06 06:31] LABS: ALKALINE PHOSPHATASE 44 U/L (45-117); ALT (GPT) 59 U/L (10-53); AST (GOT) 57 U/L (15-37); BICARBONATE 24.6 MEQ/L (21.0-32.0); BLOOD UREA NITROGEN 16 MG/DL (7-18); CALCIUM 8.4 MG/DL (8.5-10.1); CHLORIDE 110 MEQ/L (98-107); CREATININE 0.65 MG/DL (0.50-1.00); GLOMERULAR FILTRATION RATE 107 ML/MIN (>89); GLUCOSE,RANDOM 75 MG/DL (74-106); PHOSPHORUS 2.3 MG/DL (2.5-4.9); SODIUM (NA) 147 MEQ/L (136-145); TOTAL PROTEIN 6.8 GM/DL (6.4-8.2)
[2018-02-06] MEDS: 1/2 NS + KCL 20 MEQ INJ 1,000 ML IV SCH ×2 (06:39→21:41)
[2018-02-06] MEDS: POTASSIUM CHLOR 20 MEQ PREMIX 100 ML IV PRN (06:51)
[2018-02-06] MEDS: CHLORHEXIDINE 0.12% (ORAL KIT) 15 ML CUP MT SCH ×2 (07:50→19:51)
[2018-02-06] MEDS: DOCUSATE SODIUM 50 MG/SENNA 8.6 MG TAB PO SCH ×2 (07:50→19:51)
[2018-02-06] MEDS: SODIUM CHLORIDE 0.9% FLUSH 10 ML FLUSH IV FLUSH SCH ×2 (07:50→19:51)
[2018-02-06] MEDS: ARTIFICIAL TEARS OPTH SOLN 15 ML BTL EACH EYE SCH ×3 (07:50→16:49)
--- NOTE | 2018-02-06 08:06 | HHI.CCPN ---
Subjective Remarks/Hospital Course 02/04: This is a 28-year-old female. Date of admission 02/04/2018. Past medical history is diet-controlled diabetes. Patient presents to [facility] of the following history. Per EMS report, patient was found unresponsive. GCS around 3. According to the people where she was found she has a known history of heroin use according to EMS. She had a bottle of baclofen 10 mg at her side. She received 2 mg IM naloxone in her right thigh without response. She received flumazenil 0.5 mg and naloxone 2 mg without response here at [facility]. She is emergently intubated with 40 mg etomidate and 100 mg succinylcholine. Patient's urine drug is positive for opiates, amphetamines and cocaine. Alcohol level less than 3. Elevated transaminases. She is currently on a propofol drip at 50 migrans per kilogram per minute. CT brain currently pending at time of dictation. She is very agitated and moves all 4 extremities spontaneously but not following commands. She has 2 noticeable track bhatia her left antecubital region. [id number]-ci-[id number] urine screen negative 02/05: Remains sedated, orally intubated on mechanical ventilation. 02/06: Sedated, orally intubated on mechanical ventilation. On Versed and Precedex drips. Objective Vital Signs Date Time Temp Pulse Resp B/P (MAP) Pulse Ox O2 Delivery O2 Flow Rate FiO2 02/06/18 07:50 100 40 02/06/18 07:00 Mechanical Ventilator 02/06/18 06:00 82 02/06/18 04:00 99.3 16 103/56 (72) 02/04/18 22:53 4.00 Intake and Output 02/06/18 02/06/18 02/07/18 08:00 16:00 00:00 Intake Total 1102 ml Output Total 700 ml Balance 402 ml Result Diagram: 02/06/18 0337 02/06/18 0337 Imaging Last Impressions Chest X-Ray 02/04/18 0000 Signed Impressions: CONCLUSION: No acute cardiopulmonary disease Objective Remarks GENERAL: 28-year-old female currently orotracheally intubated SKIN: Warm and dry. Tattoo on dorsum right foot. 2 track bhatia in the left antecubital region. HEAD: Atraumatic. Normocephalic. EYES: Pupils equal and round about 4 mm bilaterally and reactive. No scleral icterus. No injection or drainage. ENT: No nasal bleeding or discharge. Mucous membranes pink and moist. NECK: Trachea midline. No JVD. CARDIOVASCULAR: Regular rate and rhythm. S1-S2 regular, no gallop or murmur RESPIRATORY: No accessory muscle use. Clear to auscultation. Breath sounds equal bilaterally. GASTROINTESTINAL: Abdomen soft, non-tender, nondistended. Hypoactive bowel sounds are appreciated MUSCULOSKELETAL: Extremities significant peripheral edema. No obvious deformities. NEUROLOGICAL: Sedated, arousable, orally intubated on mechanical ventilation, moving all 4 extremities, grossly nonfocal. A/P Assessment and Plan Neuro/Psych: Acute delirium/toxic metabolic encephalopathy UDS + opiates/cocaine and amphetamines On Versed/Precedex drips. Goal of RA SS -[address] brain unremarkable UDS + opiates/cocaine and amphetamines CV: IV hydration Not requiring vasopressors and/or antihypertensives 2D echocardiogram ordered with IV drug use Troponin less than 0.02 Resp: Acute respiratory failure [facility] 16/500/08/22/39 Ventilator bundle Albuterol/ipratropium aerosols every 4 hours with albuterol aerosols every 2 hours as needed dyspnea Spontaneous breathing trials to decide extubation once neurologic status improves. GI: Elevated transaminases Elevated total protein If not extubated we will start tube feeds. Lansoprazole for GI prophylaxis Docusate sodium/senna 1 tablet twice daily for bowel regimen Hepatitis panel positive for hep C : Varner catheter for accurate I's and O's in a critically ill patient Endo: Novolog sliding scale insulin/low regimen with Accu-Cheks every 6 hours to maintain euglycemia TSH 0.36 Renal: Creatinine currently within normal limits Monitor urine output Accurate I's and O Heme: Polycythemia -likely hemoconcentration/dehydration Follow CBC Coags within normal ID: Pancultures ordered for fever on 02/05. Start an empiric antibiotic coverage initially received Zosyn however has been stated patient had mentioned being allergic to penicillin though he does not recall her ever having a reaction to penicillin. Patient did not appear to have any allergic reaction following administration of IV Zosyn earlier. Antibiotics switched to IV Levaquin(02/05). FEN: Hypercalcemia Replace electrolytes as clinically indicated per ICU electrolyte protocol Follow calcium levels MSK: PT evaluate and treat Access Utilized peripheral IV. Central line if indicated- Prophylaxis -GI -lansoprazole -DVT -SCD/start Lovenox for DVT prophylaxis on 02/06 Condition critical Time spent on critical care excluding procedures 30 minutes Toni Quan MD Feb 06, 2018 08:06
[2018-02-06] MEDS: LANSOPRAZOLE SOLUTAB 30 MG TAB G-TUBE SCH (08:39)
[2018-02-06] MEDS: HEPARIN SODIUM - SQ 10,000 UNITS/ML VIAL SQ SCH ×2 (08:40→19:50)
[2018-02-06] MEDS: MUPIROCIN 2% OINT 1 APPLIC/GM SYR NASAL SCH ×2 (08:40→19:50)
--- NOTE | 2018-02-06 10:01 | PD.CONS ---
HPI History of Present Illness This is a 28 year old female who was admitted to the hospital on 02/04/2018. Currently patient is being monitored in the intensive care setting with ventilator management. Patient's eyes are closed and patient is not responding to simple verbal stimuli. Patient has oral gastric tube clamped intact. GI has been consulted to assist with management of her elevated LFTs and history of hepatitis C according to current labs. Patient is unable to respond or answer simple questions most of the information is currently being obtained from the record. According to the staff there is no history of any treatment of hepatitis C in the past. Patient was found unresponsive per the EMS report and according to the record patient has a known history of heroin use. Urine drug screen was positive for opiates and amphetamines and cocaine. Patient also has medical history of diet-controlled diabetes. Unknown patient's GI history of EGD or colonoscopy or family history of any colon cancer. Initial labs showed total bilirubin 0.7, lipase level 111, alkaline phosphatase 66, AST 112, ALT 106. These findings could be related to some shock of the liver and or patient's history of hepatitis C. (Lyn Buck) [facility] Past Medical History Hepatitis C Per the record history of heroin use Diabetes diet-controlled Past Surgical History Appendectomy according to the record (Lyn Buck) Coded Allergies: No Allergy Information Available (Unverified , 02/04/18) GCS Medications Administered Medications Medications (Trade) Dose Ordered Sig/Marquita Route PRN Reason Start Time Stop Time Status Last Admin Dose Admin Sodium Chloride (NS Flush) 2 ml UNSCH PRN IV FLUSH FLUSH AFTER USING IV ACCESS 02/04/18 23:45 02/05/18 00:53 Sodium Chloride (NS Flush) 2 ml BID IV FLUSH 02/05/18 09:00 02/06/18 07:50 Lansoprazole (Prevacid Odt) 30 mg DAILY G-TUBE 02/05/18 09:00 02/06/18 08:39 Artificial Tears (Tears Naturale Opth Soln) 1 drop TID EACH EYE 02/05/18 09:00 02/06/18 07:50 Albuterol/ Ipratropium (Duoneb Neb) 1 ampule Q4HR NEB INH 02/05/18 00:00 02/06/18 07:53 Miscellaneous Information ([facility] Nursing Information) 1 Q361D XX 02/04/18 23:45 02/04/18 23:45 Chlorhexidine Gluconate (Chlorhexidine 2% Cloth) 3 pack Taper DAILY@04 TOP 02/05/18 04:00 02/01/19 03:59 02/05/18 04:00 Senna/Docusate Sodium (Nadine-Colace) 1 tab BID PO 02/05/18 09:00 02/05/18 20:18 Chlorhexidine Gluconate (Peridex 0.12% Liq) 15 ml BID@08,20 MT 02/05/18 08:00 02/06/18 07:50 Propofol 100 ml @ 1.56 mls/hr TITRATE PRN IV SEDATION 02/04/18 23:45 02/05/18 10:04 Midazolam HCl 50 ml @ 2 mls/hr TITRATE PRN IV SEDATION 02/04/18 23:45 02/06/18 00:58 Potassium Chloride 100 ml @ 50 mls/hr Q2H PRN IV For Potassium 3.3 - 3.5 mEq/L 02/04/18 23:45 02/06/18 06:51 Heparin Sodium (Porcine) (Heparin Inj) 5,000 units Q12HR SQ 02/05/18 09:00 02/06/18 08:40 Potassium Chloride/Sodium Chloride 1,000 ml @ 100 mls/hr Q10H IV 02/05/18 05:30 02/06/18 06:39 Mupirocin (Bactroban Nasal 2% Oint) 1 applic BID NASAL 02/05/18 21:00 02/06/18 08:40 Acetaminophen (Tylenol 650 Mg/ 20 ml Liq) 650 mg Q6H PRN PO temp greater than 101 02/05/18 12:15 02/05/18 14:35 Dexmedetomidine HCl 200 mcg/ Sodium Chloride 52 ml @ 3.3 mls/hr TITRATE PRN IV SEDATION 02/05/18 12:15 02/06/18 08:40 Levofloxacin/ Dextrose 150 ml @ 100 mls/hr Q24H IV 02/05/18 17:00 02/05/18 17:26 Vancomycin HCl 1000 mg/Sodium Chloride 250 ml @ 250 mls/hr Q8H IV 02/05/18 21:45 02/06/18 05:14 Family History Unknown Social History History of heroin use drug screen positive for opiates, amphetamines, and cocaine, (Lyn Buck) GI Exam Vitals I&O Vital Signs Date Time Temp Pulse Resp B/P (MAP) Pulse Ox O2 Delivery O2 Flow Rate FiO2 02/06/18 08:00 40 02/06/18 08:00 98.4 76 16 111/69 (83) 100 02/06/18 08:00 76 02/06/18 07:50 100 40 02/06/18 07:00 100 Mechanical Ventilator 40 02/06/18 06:00 82 02/06/18 04:24 100 40 02/06/18 04:00 99.3 88 16 103/56 (72) 100 02/06/18 04:00 40 02/06/18 04:00 88 02/06/18 02:00 93 02/06/18 00:40 100 40 02/06/18 00:00 99.6 92 16 105/70 (82) 100 02/06/18 00:00 92 02/06/18 00:00 40 02/05/18 22:00 93 02/05/18 20:36 100 40 02/05/18 20:00 40 02/05/18 20:00 99.3 82 16 108/69 (82) 100 02/05/18 20:00 82 02/05/18 19:00 100 Mechanical Ventilator 40 02/05/18 18:00 86 02/05/18 16:06 100 40 02/05/18 16:00 98.0 94 16 106/62 (77) 96 02/05/18 16:00 40 02/05/18 16:00 93 02/05/18 14:00 101 02/05/18 12:00 101.7 129 32 133/90 (104) 100 02/05/18 12:00 40 02/05/18 12:00 126 02/05/18 11:18 99 40 02/05/18 10:30 40 I/O 02/05/18 02/05/18 02/05/18 02/06/18 02/06/18 02/06/18 07:00 15:00 23:00 07:00 15:00 23:00 Intake Total 999 ml 450 ml 750 ml 1102 ml Output Total 500 ml 1200 ml 700 ml Balance 499 ml 450 ml -450 ml 402 ml Intake IV Total 999 ml 450 ml 750 ml 1102 ml Output Urine Total 300 ml 200 ml 400 ml Gastric Drainage Total 200 ml 1000 ml 300 ml # Bowel Movements 0 2 Imaging Last Impressions Head CT 02/04/18 2140 Signed Impressions: CONCLUSION: 1. Negative CT Head non contrast. Chest X-Ray 02/04/18 0000 Signed Impressions: CONCLUSION: No acute cardiopulmonary disease Laboratory Test 02/05/18 13:30 02/05/18 13:43 02/06/18 03:37 Urine Color DARK-YELLOW Urine Turbidity TURBID Urine pH 5.0 Urine Specific [place] 1.027 Urine Protein 100 mg/dL Urine Glucose (UA) NEG mg/dL Urine Ketones 80 OR GREATER mg/dL Urine Occult Blood NEG Urine Nitrite NEG Urine Bilirubin NEG Urine Urobilinogen 4.0 OR GREATER mg/dL Urine Leukocyte Esterase NEG Urine RBC 9 /hpf Urine WBC 3 /hpf Urine Bacteria OCC /hpf Urine Mucus MANY /lpf Microscopic Urinalysis Comment CATH-CULTURE IND Hepatitis A IgM Antibody NONREACTIVE Hepatitis B Surface Antigen NONREACTIVE Hepatitis B Core IgM Antibody NONREACTIVE Hepatitis C IgG Antibody REACTIVE White Blood Count 17.4 TH/MM3 Red Blood Count 4.29 MIL/MM3 Hemoglobin 12.7 GM/DL Hematocrit 38.5 % Mean Corpuscular Volume 89.7 FL Mean Corpuscular Hemoglobin 29.6 PG Mean Corpuscular Hemoglobin Concent 33.0 % Red Cell Distribution Width 14.6 % Platelet Count 225 TH/MM3 Mean Platelet Volume 10.6 FL Neutrophils (%) (Auto) 82.6 % Lymphocytes (%) (Auto) 7.2 % Monocytes (%) (Auto) 9.8 % Eosinophils (%) (Auto) 0.1 % Basophils (%) (Auto) 0.3 % Neutrophils # (Auto) 14.4 TH/MM3 Lymphocytes # (Auto) 1.3 TH/MM3 Monocytes # (Auto) 1.7 TH/MM3 Eosinophils # (Auto) 0.0 TH/MM3 Basophils # (Auto) 0.1 TH/MM3 CBC Comment DIFF FINAL Differential Comment Hematology Comments Blood Urea Nitrogen 16 MG/DL Creatinine 0.65 MG/DL Random Glucose 75 MG/DL Total Protein 6.8 GM/DL Albumin 3.0 GM/DL Calcium Level 8.4 MG/DL Phosphorus Level 2.3 MG/DL Magnesium Level 2.0 MG/DL Alkaline Phosphatase 44 U/L Aspartate Amino Transf (AST/SGOT) 57 U/L Alanine Aminotransferase (ALT/SGPT) 59 U/L Total Bilirubin 1.0 MG/DL Sodium Level 147 MEQ/L Potassium Level 3.4 MEQ/L Chloride Level 110 MEQ/L Carbon Dioxide Level 24.6 MEQ/L Anion Gap 12 MEQ/L Estimat Glomerular Filtration Rate 107 ML/MIN Date/Time Source Procedure Growth Status 02/05/18 13:48 Blood Peripheral Aerobic Blood Culture Pending Received 02/05/18 13:48 Blood Peripheral Anaerobic Blood Culture Pending Received 02/05/18 12:20 Sputum Endotracheal Gram Stain - Final Resulted 02/05/18 12:20 Sputum Endotracheal Sputum Culture Pending Resulted 02/05/18 13:30 Urine Catheterized Urine Urine Culture Pending Received Physical Examination HEENT: normocephalic; atraumatic; no obvious, oral ET tube and orogastric tube intact NECK: Neck is supple, CHEST: Chest is clear and some rhonchi per the ventilator CARDIAC: Regular rate and rhythm, no obvious murmur ABDOMEN: Round, soft, nondistended, no hepatosplenomegaly; bowel sounds soft EXTREMITIES: No clubbing, cyanosis, or edema. SKIN: Normal; no rash; no jaundice. SWITCHBOARD CLERK: Sedated, obtunded (Lyn Buck) Assessment and Plan Plan Transaminitis elevated LFTs with normal bilirubin. Labs show bilirubin at 0.7, AST 112, ALT 106, lipase level 111, alkaline phosphatase 66. This could be related to some shock to her liver and history of hepatitis C. Hemoglobin 17.1 hematocrit 50.8, WBC count 10.7. History of hepatitis C per the record but unknown any treatment regimen Currently positive for multi drug, opiates, amphetamines, and cocaine. History of heroin use Currently ventilated and intubated with oral ET tube, sedation is currently weaning and hopefully moving towards extubation soon Current labs order include monitoring of hepatitis functional panel, AFP, alpha- 1 antitrypsin, AMA, AMS A, ceruloplasmin, DARIEN, hepatitis C RNA quantitative hepatitis C genotype IgG. IgA Plan Diet n.p.o. for now Liver workup initiated with multiple labs, liver ultrasound, Monitor current labs with special attention to LFTs Antiemetics Prevacid Further recommendations to follow once patient's liver workup is complete and she is able to respond to verbal stimuli. Patient was seen per myself and Dr. Cole, this note was written on her behalf (Lyn Buck) Physician Comments seen, examined agree with above hep c viral load (Aurelia Cole MD) Lyn Buck Feb 06, 2018 10:01 Aurelia Cole MD Feb 06, 2018 13:19
[2018-02-06] MEDS ORDERED: PHARMACY ORDERED LAB ONE (11:45)
--- NOTE | 2018-02-06 12:29 | RADRPT ---
EXAM DATE: 02/06/2018 11:59 AM EDT AGE/SEX: 28 years / Female INDICATIONS: Hepatitis C. CLINICAL DATA: This is the patient's initial encounter. Patient reports that signs and symptoms have been present for 1 day and indicates a pain score of Nonresponsive. MEDICAL/SURGICAL HISTORY: Hepatitis C. Seizures. Depression. Anxiety. MRSA. Appendectomy. Teet h removal. COMPARISON: No prior exams available for comparison. MEASUREMENTS: Liver:__ 19.8 cm. Common Bile Duct:__ 2mm. Right Kidney:__ 13.4 x 4.1 x 1.1 cm cm. FINDINGS: Liver: The liver is diffuse enlarged with some mild increased echogenicity throughout the liver paren chyma. No dilated biliary ducts are demonstrated. There is no evidence of ascites. Portal Vein: Hepatopedal flow seen in portal vein. Common Duct: No intraluminal mass or stone visualized. Gallbladder: Demonstrates no wall thickening or pericholecystic fluid. No stones visualized. Pancreas: The visualized portions are within normal limits Right Kidney: No mass or hydronephrosis. CONCLUSION: 1. There is mild diffuse enlargement of the liver measuring approximately 19.8 cm. There is some mil d increased echogenicity of the liver parenchyma suggestive of some fatty infiltration. 2. No evidence of gallstones or biliary tract obstruction. Electronically signed by: Gabriel Mon MD 02/06/2018 12:28 PM EDT
[2018-02-06] MEDS: LEVOFLOXACIN 750 MG PREMIX INJ 150 ML IV SCH (16:09)
[2018-02-06] MEDS ORDERED: LORazepam 2 MG/ML VIAL ONE (17:21)
[2018-02-06] MEDS: LORazepam 2 MG/ML VIAL IV SCH ×2 (17:30→18:36)
[2018-02-06] MEDS ORDERED: LORazepam 2 MG/ML VIAL IV PRN (17:30)
[2018-02-06] MEDS: VANCOMYCIN INJ 1,250 MG in SODIUM CHLOR 0.9% 250 ML INJ 250 ML IV SCH (21:47)
[2018-02-07] VITALS (10 sets, daily range): BP systolic 120–129; BP diastolic 68–84; PULSE 52–102; RESP 16–22; TEMP 97.8–99.4; O2SAT 100
[2018-02-07] MEDS: RESP: ALBUTEROL 2.5 MG/IPRATROPIUM 0.5 MG NEB (SCH) INH ×4 (03:24→15:48)
[2018-02-07] MEDS: CHLORHEXIDINE GLUCONATE 2 % 1 PACK (2 CLOTHS) TOP SCH (03:41)
[2018-02-07] MEDS: DEXMEDETOMIDINE INJ 200 MCG in SODIUM CHLORIDE 0.9% INJ 50 ML IV PRN (04:31)
[2018-02-07 05:23] LABS: AUTOMATED NEUTROPHIL # 10.3 TH/MM3 (1.8-7.7); BASOPHIL # 0.1 TH/MM3 (0-0.2); BASOPHIL % 0.6 % (0.0-2.0); EOSINOPHIL # 0.1 TH/MM3 (0-0.4); EOSINOPHIL % 0.5 % (0.0-4.0); HEMATOCRIT 37.4 % (35.0-46.0); HEMOGLOBIN 12.2 GM/DL (11.6-15.3); LYMPH % 16.6 % (9.0-44.0); LYMPHOCYTE # 2.3 TH/MM3 (1.0-4.8); MEAN CELL VOLUME 91.1 FL (80.0-100.0); MEAN CORPUSCULAR HEMOGLOBIN 29.8 PG (27.0-34.0); MEAN CORPUSCULAR HGB CONC 32.7 % (32.0-36.0); MEAN PLATELET VOLUME 10.4 FL (7.0-11.0); MONO % 8.1 % (0.0-8.0); MONOCYTE # 1.1 TH/MM3 (0-0.9); NEUT % 74.2 % (16.0-70.0); PLATELET COUNT 221 TH/MM3 (150-450); RED BLOOD COUNT 4.11 MIL/MM3 (4.00-5.30); RED CELL DISTRIBUTION WIDTH 14.7 % (11.6-17.2); WHITE BLOOD COUNT 13.9 TH/MM3 (4.0-11.0)
[2018-02-07] MEDS: VANCOMYCIN INJ 1,250 MG in SODIUM CHLOR 0.9% 250 ML INJ 250 ML IV SCH ×2 (05:56→13:31)
[2018-02-07 05:59] LABS: ALBUMIN 2.9 GM/DL (3.4-5.0); BICARBONATE 22.5 MEQ/L (21.0-32.0); CALCIUM 8.7 MG/DL (8.5-10.1); CREATININE 0.55 MG/DL (0.50-1.00)
[2018-02-07] MEDS: INSULIN ASPART SUPPLEMENTAL SCALE SQ SCH ×2 (06:00)
[2018-02-07 06:01] LABS: DIRECT BILIRUBIN ADULT 0.2 MG/DL (0.0-0.2)
[2018-02-07 06:03] LABS: INDIRECT BILIRUBIN 0.4 MG/DL (0.0-0.8); TOTAL BILIRUBIN ADULT 0.6 MG/DL (0.2-1.0)
[2018-02-07] MEDS: CHLORHEXIDINE 0.12% (ORAL KIT) 15 ML CUP MT SCH (07:49)
[2018-02-07] MEDS: DOCUSATE SODIUM 50 MG/SENNA 8.6 MG TAB PO SCH (08:19)
[2018-02-07] MEDS: LANSOPRAZOLE SOLUTAB 30 MG TAB G-TUBE SCH (08:19)
[2018-02-07] MEDS: 1/2 NS + KCL 20 MEQ INJ 1,000 ML IV SCH (08:19)
[2018-02-07] MEDS: ARTIFICIAL TEARS OPTH SOLN 15 ML BTL EACH EYE SCH ×2 (08:19→13:00)
[2018-02-07] MEDS: HEPARIN SODIUM - SQ 10,000 UNITS/ML VIAL SQ SCH (08:19)
[2018-02-07] MEDS: MUPIROCIN 2% OINT 1 APPLIC/GM SYR NASAL SCH (08:19)
[2018-02-07] MEDS: SODIUM CHLORIDE 0.9% FLUSH 10 ML FLUSH IV FLUSH SCH (08:20)
[2018-02-07] MEDS: POTASSIUM CHLOR 20 MEQ PREMIX 100 ML IV PRN (08:20)
[2018-02-07] MEDS ORDERED: POTASSIUM CHLORIDE 20 MEQ CONTROLLED RELEASE TAB PO ONE (09:30)
--- NOTE | 2018-02-07 11:02 | HHI.PR ---
Subjective Remarks Follow-up toxic metabolic encephalopathy February 06, 2018-patient seen and examined, alert and oriented 3, however states she would like to go home to be with her kids and . Precedex was turned off Objective Vitals Vital Signs Date Time Temp Pulse Resp B/P (MAP) Pulse Ox O2 Delivery O2 Flow Rate FiO2 02/07/18 10:00 86 02/07/18 08:00 92 02/07/18 08:00 97.8 94 20 125/78 (94) 100 02/07/18 07:32 100 02/07/18 07:00 100 Room Air 02/07/18 06:00 77 02/07/18 04:00 72 02/07/18 04:00 98.0 87 22 120/81 (94) 100 02/07/18 02:00 52 02/07/18 00:00 54 02/07/18 00:00 99.4 70 20 128/84 (99) 100 02/06/18 22:00 73 02/06/18 20:00 99.3 86 26 127/85 (99) 100 02/06/18 20:00 88 02/06/18 19:18 100 02/06/18 19:00 100 Room Air Mechanical Ventilator 02/06/18 18:00 94 02/06/18 16:00 99.6 87 29 121/80 (94) 100 02/06/18 16:00 87 02/06/18 14:00 65 02/06/18 12:00 65 02/06/18 12:00 40 02/06/18 12:00 99.5 65 16 112/74 (87) 100 02/06/18 11:05 100 40 I/O 02/06/18 02/06/18 02/06/18 02/07/18 02/07/18 02/07/18 07:00 15:00 23:00 07:00 15:00 23:00 Intake Total 1102 ml 350 ml 1464.5 ml 654.5 ml 1030 ml Output Total 700 ml 450 ml 900 ml Balance 402 ml 350 ml 1014.5 ml -245.5 ml 1030 ml Intake Oral 340 ml IV Total 1102 ml 350 ml 1464.5 ml 314.5 ml 1030 ml Output Urine Total 400 ml 350 ml 900 ml Gastric Drainage Total 300 ml 100 ml # Voids 1 # Bowel Movements 2 1 Result Diagram: 02/07/18 0348 02/07/18 0348 Imaging Last Impressions Liver Ultrasound 02/06/18 0000 Signed Impressions: CONCLUSION: 1. There is mild diffuse enlargement of the liver measuring approximately 19.8 cm. There is some mild increased echogenicity of the liver parenchyma suggesti ve of some fatty infiltration. 2. No evidence of gallstones or biliary tract obstruction. Head CT 02/04/18 2140 Signed Impressions: CONCLUSION: 1. Negative CT Head non contrast. Chest X-Ray 02/04/18 0000 Signed Impressions: CONCLUSION: No acute cardiopulmonary disease Objective Remarks GENERAL: NAD SKIN: Warm and dry. HEAD: Normocephalic. EYES: No scleral icterus. No injection or drainage. NECK: Supple, trachea midline. No JVD or lymphadenopathy. CARDIOVASCULAR: Regular rate and rhythm without murmurs, gallops, or rubs. RESPIRATORY: Breath sounds equal bilaterally. No accessory muscle use. GASTROINTESTINAL: Abdomen soft, non-tender, nondistended. MUSCULOSKELETAL: No cyanosis, or edema. BACK: Nontender without obvious deformity. No CVA tenderness. A/P Problem List: (1) Acute respiratory failure ICD Code: J96.00 - Acute respiratory failure, unspecified whether with hypoxia or hypercapnia (2) Cocaine abuse ICD Code: F14.10 - Cocaine abuse, uncomplicated (3) Encephalopathy acute ICD Code: G93.40 - Encephalopathy, unspecified (4) Polycythemia ICD Code: D75.1 - Secondary polycythemia (5) Serum calcium elevated ICD Code: E83.52 - Hypercalcemia (6) Elevated transaminase level ICD Code: R74.0 - Nonspecific elevation of levels of transaminase and lactic acid dehydrogenase [LDH] (7) Opiate overdose ICD Code: T40.601A - Poisoning by unspecified narcotics, accidental ( unintentional), initial encounter (8) Amphetamine abuse ICD Code: F15.10 - Other stimulant abuse, uncomplicated (9) Elevated total protein ICD Code: R77.8 - Other specified abnormalities of plasma proteins Assessment and Plan 28-year-old female with Acute delirium/toxic metabolic encephalopathy-improving UDS + opiates/cocaine and amphetamines s/p Versed/Precedex drips. Daily sedation vacation CT brain unremarkable Psychiatry consultation pending Acute respiratory failure-resolved Extubated Bronchodilator as needed Elevated transaminases Hepatitis C IgG reactive Appreciate input from GI HCV RNA and genotype and PCR pending Mitochondrial and anti-smooth antibody pending Liver ultrasound noted Sputum positive for MRSA and patient will leukocytosis Currently on empiric vancomycin and Levaquin Blood culture negative to date History of diabetes Currently on sliding scale insulin Check hemoglobin A1c Polycythemia -likely hemoconcentration/dehydration-resolved Hypercalcemia-resolved PT evaluate and treat Prophylaxis -GI -lansoprazole -DVT -SCD/Lovenox Problem Qualifiers (1) Acute respiratory failure: Qualified Codes: J96.00 - Acute respiratory failure, unspecified whether with hypoxia or hypercapnia (2) Opiate overdose: Qualified Codes: T40.604A - Poisoning by unspecified narcotics, undetermined, initial encounter Enrique Ramirez MD Feb 07, 2018 11:02
[2018-02-07] MEDS ORDERED: RESP: ALBUTEROL 2.5 MG/IPRATROPIUM 0.5 MG NEB (PRN) NEB (11:15)
--- NOTE | 2018-02-07 16:57 | HHI.DS ---
Discharge Summary Admission Date Feb 04, 2018 at 23:49 Discharge Date: Feb 07, 2018 Admitting Diagnosis Overdose/polypharmacy (1) Acute respiratory failure ICD Code: J96.00 - Acute respiratory failure, unspecified whether with hypoxia or hypercapnia Diagnosis: Principal (2) Cocaine abuse ICD Code: F14.10 - Cocaine abuse, uncomplicated Diagnosis: Principal (3) Encephalopathy acute ICD Code: G93.40 - Encephalopathy, unspecified Diagnosis: Principal (4) Polycythemia ICD Code: D75.1 - Secondary polycythemia Diagnosis: Secondary (5) Serum calcium elevated ICD Code: E83.52 - Hypercalcemia Diagnosis: Secondary (6) Elevated transaminase level ICD Code: R74.0 - Nonspecific elevation of levels of transaminase and lactic acid dehydrogenase [LDH] Diagnosis: Secondary (7) Opiate overdose ICD Code: T40.601A - Poisoning by unspecified narcotics, accidental ( unintentional), initial encounter Diagnosis: Principal (8) Amphetamine abuse ICD Code: F15.10 - Other stimulant abuse, uncomplicated Diagnosis: Principal (9) Elevated total protein ICD Code: R77.8 - Other specified abnormalities of plasma proteins Diagnosis: Secondary Procedures None Brief History - From Admission This is a 28-year-old female. Date of admission 02/04/2018. Past medical history is diet-controlled diabetes. Patient presents to [facility] of the following history. Per EMS report, patient was found unresponsive. GCS around 3. According to the people where she was found she has a known history of heroin use according to EMS. She had a bottle of baclofen 10 mg at her side. She received 2 mg IM naloxone in her right thigh without response. She received flumazenil 0.5 mg and naloxone 2 mg without response here at [facility]. She is emergently intubated with 40 mg etomidate and 100 mg succinylcholine. Patient's urine drug is positive for opiates, amphetamines and cocaine. Alcohol level less than 3. Elevated transaminases. She is currently on a propofol drip at 50 migrans per kilogram per minute. CT brain currently pending at time of dictation. She is very agitated and moves all 4 extremities spontaneously but not following commands. She has 2 noticeable track bhatia her left antecubital region. [id number] urine screen negative CBC/BMP: 02/07/18 0348 02/07/18 0348 Significant Findings Laboratory Tests Test 02/04/18 22:00 02/04/18 22:09 02/04/18 22:25 02/05/18 02:45 Red Blood Count 5.62 MIL/MM3 (4.00-5.30) Hemoglobin 17.1 GM/DL (11.6-15.3) Hematocrit 50.8 % (35.0-46.0) Neutrophils (%) (Auto) 79.0 % (16.0-70.0) Neutrophils # (Auto) 8.4 TH/MM3 (1.8-7.7) Urine Mucus FEW /lpf (OCC) Total Protein 10.2 GM/DL (6.4-8.2) Calcium Level 10.4 MG/DL (8.5-10.1) Aspartate Amino Transf (AST/SGOT) 112 U/L (15-37) Alanine Aminotransferase (ALT/SGPT) 106 U/L (10-53) Estimat Glomerular Filtration Rate 74 ML/MIN (>89) Troponin I LESS THAN 0.02 NG/ML Salicylates Level LESS THAN 1.7 MG/DL Urine Opiates Screen POS (NEG) Acetaminophen Level LESS THAN 2.0 MCG/ML Urine Amphetamines Screen POS (NEG) Urine Cocaine Screen POS (NEG) Arterial Blood pH 7.43 (7.380-7.420) Arterial Blood Oxygen Content 21.3 Vol % (12.0-20.0) Blood Gas Hemoglobin 16.1 G/DL (12.0-16.0) Test 02/05/18 04:13 02/05/18 13:30 02/05/18 13:43 02/06/18 03:37 White Blood Count 13.5 TH/MM3 (4.0-11.0) 17.4 TH/MM3 (4.0-11.0) Red Blood Count 5.33 MIL/MM3 (4.00-5.30) Hemoglobin 15.9 GM/DL (11.6-15.3) Hematocrit 47.8 % (35.0-46.0) Neutrophils (%) (Auto) 79.4 % (16.0-70.0) 82.6 % (16.0-70.0) Monocytes (%) (Auto) 10.6 % (0.0-8.0) 9.8 % (0.0-8.0) Neutrophils # (Auto) 10.7 TH/MM3 (1.8-7.7) 14.4 TH/MM3 (1.8-7.7) Monocytes # (Auto) 1.4 TH/MM3 (0-0.9) 1.7 TH/MM3 (0-0.9) Total Protein 8.7 GM/DL (6.4-8.2) Aspartate Amino Transf (AST/SGOT) 100 U/L (15-37) 57 U/L (15-37) Alanine Aminotransferase (ALT/SGPT) 90 U/L (10-53) 59 U/L (10-53) Sodium Level 146 MEQ/L (136-145) 147 MEQ/L (136-145) Potassium Level 3.1 MEQ/L (3.5-5.1) 3.4 MEQ/L (3.5-5.1) Total Creatine Kinase 699 U/L (26-192) 582 U/L (26-192) Creatine Kinase MB 10.4 NG/ML (0.5-3.6) Amylase Level 234 U/L (25-115) Urine Color DARK-YELLOW (YELLW/STRAW) Urine Protein 100 mg/dL (NEG-TRACE) Urine Ketones 80 OR GREATER mg/dL (NEG) Urine Urobilinogen 4.0 OR GREATER mg/dL (LESS Urine RBC 9 /hpf (0-3) Urine Bacteria OCC /hpf (NONE) Urine Mucus MANY /lpf (OCC) Hepatitis C IgG Antibody REACTIVE (NONREACTIVE) Lymphocytes (%) (Auto) 7.2 % (9.0-44.0) Albumin 3.0 GM/DL (3.4-5.0) Calcium Level 8.4 MG/DL (8.5-10.1) Phosphorus Level 2.3 MG/DL (2.5-4.9) Alkaline Phosphatase 44 U/L (45-117) Chloride Level 110 MEQ/L (98-107) Test 02/06/18 12:25 02/07/18 03:48 Vancomycin Level Trough 13.7 MCG/ML (5.0-10.0) White Blood Count 13.9 TH/MM3 (4.0-11.0) Neutrophils (%) (Auto) 74.2 % (16.0-70.0) Monocytes (%) (Auto) 8.1 % (0.0-8.0) Neutrophils # (Auto) 10.3 TH/MM3 (1.8-7.7) Monocytes # (Auto) 1.1 TH/MM3 (0-0.9) Albumin 2.9 GM/DL (3.4-5.0) Aspartate Amino Transf (AST/SGOT) 48 U/L (15-37) Alanine Aminotransferase (ALT/SGPT) 55 U/L (10-53) Potassium Level 3.4 MEQ/L (3.5-5.1) Chloride Level 109 MEQ/L (98-107) Imaging Last Impressions Liver Ultrasound 02/06/18 0000 Signed Impressions: CONCLUSION: 1. There is mild diffuse enlargement of the liver measuring approximately 19.8 cm. There is some mild increased echogenicity of the liver parenchyma suggesti ve of some fatty infiltration. 2. No evidence of gallstones or biliary tract obstruction. Head CT 02/04/18 2140 Signed Impressions: CONCLUSION: 1. Negative CT Head non contrast. Chest X-Ray 02/04/18 0000 Signed Impressions: CONCLUSION: No acute cardiopulmonary disease PE at Discharge GENERAL: NAD SKIN: Warm and dry. HEAD: Normocephalic. EYES: No scleral icterus. No injection or drainage. NECK: Supple, trachea midline. No JVD or lymphadenopathy. CARDIOVASCULAR: Regular rate and rhythm without murmurs, gallops, or rubs. RESPIRATORY: Breath sounds equal bilaterally. No accessory muscle use. GASTROINTESTINAL: Abdomen soft, non-tender, nondistended. MUSCULOSKELETAL: No cyanosis, or edema. BACK: Nontender without obvious deformity. No CVA tenderness. Hospital Course Acute delirium/toxic metabolic encephalopathy-improving UDS + opiates/cocaine and amphetamines s/p Versed/Precedex drips. Daily sedation vacation CT brain unremarkable Patient was seen by Psychiatry , and patient was blas acted Acute respiratory failure-resolved Extubated Bronchodilator as needed Elevated transaminases Hepatitis C IgG reactive Appreciate input from GI HCV RNA and genotype and PCR pending Mitochondrial and anti-smooth antibody pending Liver ultrasound noted Sputum positive for MRSA and patient will leukocytosis Currently on empiric vancomycin and Levaquin Blood culture negative to date History of diabetes Currently on sliding scale insulin Check hemoglobin A1c Polycythemia -likely hemoconcentration/dehydration-resolved Hypercalcemia-resolved PT evaluate and treat Prophylaxis -GI -lansoprazole -DVT -SCD/Lovenox Pt Condition on Discharge: Fair Discharge Disposition: Disc to [facility] Discharge Time: > 30 minutes Discharge Instructions DIET: Follow Instructions for: As Tolerated, No Restrictions Activities you can perform: Regular-No Restrictions Follow up Referrals: PCP Follow-up New Medications: Levofloxacin (Levaquin) 750 Mg Tablet 750 MG PO DAILY for Infection, #7 TAB 0 Refills Enrique Ramirez MD Feb 07, 2018 16:57
[2018-02-07] MEDS ORDERED: LEVA750T9 PO (17:00)
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
[2018-02-07] MEDS ORDERED: QUEtiapine FUMARATE 25 MG TAB PO SCH (21:00)
[2018-02-07] MEDS ORDERED: PHARMACY ORDERED LAB ONE (21:45)
[2018-02-08 23:52] LABS: HCV RNA PCR IU/ML 30300000 IU/mL (Not Detected)
[2018-02-09 12:50] LABS: ALPHA-1-ANTITRYPSIN 176 mg/dL (100 - 190)
[2018-02-09 15:59] LABS: SMOOTH MUSCLE TOTAL AUTOABS Negative (Negative); TRANSGLUTAMINASE IGA AB <1.2 U/mL; TRANSGLUTAMINASE IGG AB <1.2 U/mL
== END 2018-02-07 18:27 | DRG 917 ==
LOC: NEPC 21:23 → NEDA 23:49 → N03A 02-05 00:22
PROVIDERS: ADMIT Internal Medicine; ATTEND Internal Medicine
PROC: 0BH17EZ Insertion of Endotracheal Airway into Trachea, Via Natural or Artificial Opening (ICD-10-PCS; principal; 2018-02-04)
PROC: 5A1945Z Respiratory Ventilation, 24-96 Consecutive Hours (ICD-10-PCS; 2018-02-04)
PROC: B246ZZZ Ultrasonography of Right and Left Heart (ICD-10-PCS; 2018-02-05)
DX: T40.602A Poisoning by unspecified narcotics, intentional self-harm, initial encounter (principal); J96.00 Acute respiratory failure, unspecified whether with hypoxia or hypercapnia; G92 Toxic encephalopathy; F32.2 Major depressive disorder, single episode, severe without psychotic features; D75.1 Secondary polycythemia; E83.52 Hypercalcemia; R45.851 Suicidal ideations; R41.82 Altered mental status, unspecified; B19.20 Unspecified viral hepatitis C without hepatic coma; R74.0 Nonspecific elevation of levels of transaminase and lactic acid dehydrogenase [LDH]; E86.0 Dehydration; G40.909 Epilepsy, unspecified, not intractable, without status epilepticus; G47.00 Insomnia, unspecified; E11.9 Type 2 diabetes mellitus without complications; R40.2432 Glasgow coma scale score 3-8, at arrival to emergency department; F19.10 Other psychoactive substance abuse, uncomplicated; F11.90 Opioid use, unspecified, uncomplicated; F14.10 Cocaine abuse, uncomplicated; F15.10 Other stimulant abuse, uncomplicated; Z72.0 Tobacco use; Z88.0 Allergy status to penicillin
CPT/HCPCS: 31500; 36600; 51702; 70450; 71045; 76705; 80048; 80053; 80074; 80076; 80202; 80307; 81001; 82103; 82105; 82140; 82150; 82390; 82550; 82552; 82805; 82948; 83516; 83520; 83605; 83615; 83690; 83735; 84100; 84443; 84484; 84702; 84703; 85025; 85610; 85730; 86038; 86255; 86403; 87040; 87070; 87086; 87147; 87186; 87205; 87522; 87641; 87902; 93005; 93306; 94002; 94003; 94640; 94664; 96361; 96365; 96375; J0330; J1644; J1956; J2060; J2250; J2310; J2543; J3370; J3480; J7030; J7050

== ENCOUNTER 2018-02-07 17:00 | Inpatient (IN) | payer MEDICAID ==
[~2018-02-07 17:00] MED LIST: LEVA750T9 PO
[2018-02-07 18:53] VITALS: BP 136/85; PULSE 111; RESP 18; TEMP 99.7; O2SAT 100
[2018-02-07] MEDS ORDERED: ALUMINUM/MAGNESIUM/SIMETH 30 ML CUP PO PRN (19:45)
[2018-02-07] MEDS ORDERED: ACETAMINOPHEN 325 MG TAB PO PRN (19:45)
[2018-02-07] MEDS ORDERED: MAGNESIUM HYDROXIDE SUSP 30 ML CUP PO PRN (19:45)
[2018-02-07] MEDS ORDERED: hydrOXYzine HCL 50 MG TAB PO PRN (19:45)
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
[2018-02-07] MEDS: QUEtiapine FUMARATE 25 MG TAB PO SCH (20:29)
[2018-02-08] MEDS: diphenhydrAMINE HCL 50 MG CAP PO PRN ×2 (00:21→21:19)
[2018-02-08 06:13] VITALS: BP 123/76; PULSE 97; RESP 18; TEMP 98.6; O2SAT 98
[2018-02-08] MEDS: REMOVE OLD PATCH T-DERMAL SCH (09:00)
[2018-02-08] MEDS: NICOTINE 21 MG/24 HR PATCH T-DERMAL SCH (09:00)
[2018-02-08 10:22] LABS: BICARBONATE 20.1 MEQ/L (21.0-32.0); BLOOD UREA NITROGEN 4 MG/DL (7-18); CALCIUM 8.8 MG/DL (8.5-10.1); CHLORIDE 108 MEQ/L (98-107); CHOLESTEROL 151 MG/DL (120-200); CHOLESTEROL/ HDL RATIO 3.81 RATIO; CREATININE 0.73 MG/DL (0.50-1.00); GLOMERULAR FILTRATION RATE 94 ML/MIN (>89); GLUCOSE,RANDOM 102 MG/DL (74-106); HDL CHOLESTEROL 39.6 MG/DL (40.0-60.0); LDL CHOLESTEROL 92 MG/DL (0-99); SODIUM (NA) 141 MEQ/L (136-145); TRIGLYCERIDES 96 MG/DL (42-150)
--- NOTE | 2018-02-08 17:08 | HHI.PYPN ---
Subjective Remarks Patient seen for follow, chart reviewed. Discussion nursing staff reported the patient admitted to having had suicide attempt which she feels having a lot of pressure from her family. Patient was found lying hospital bed noted to be calm , cooperative. Patient states that she is feeling less depressed today, denying suicide ideations at this time, reporting having continued decreased appetite stating that she is not having some difficulty swallowing food as well requesting soft diet. Patient also reports having difficulty with sleep last evening despite having Benadryl to assist. Patient denies any perceptual disturbances or delusions at this time. Review of Systems Except as stated in HPI: all other systems reviewed are Neg Mental Status Examination Appearance: Appropriate Consciousness: Alert Orientation: x4 Speech: Unremarkable Language: Adequate Fund of Knowledge: Inadequate Attention and Concentration: Adequate Memory: Impaired (events surrouding overdose) Mood: Sad Affect: Sad, Other (tearful) Thought Process & Associations: Intact, Linear Thought Content: Appropriate Hallucination Type: None Delusion Type: None Suicidal Ideation: Yes (denies at this time) Suicidal Plan: No Suicidal Intention: No Homicidal Ideation: No Homicidal Plan: No Homicidal Intention: No Insight: Poor Judgment: Poor Results Labs Labs reviewed Test 02/08/18 08:50 Blood Urea Nitrogen 4 MG/DL Creatinine 0.73 MG/DL Random Glucose 102 MG/DL Calcium Level 8.8 MG/DL Sodium Level 141 MEQ/L Potassium Level 3.2 MEQ/L Chloride Level 108 MEQ/L Carbon Dioxide Level 20.1 MEQ/L Anion Gap 13 MEQ/L Estimat Glomerular Filtration Rate 94 ML/MIN Hemoglobin A1c 5.0 % Triglycerides Level 96 MG/DL Cholesterol Level 151 MG/DL LDL Cholesterol 92 MG/DL HDL Cholesterol 39.6 MG/DL Cholesterol/HDL Ratio 3.81 RATIO Thyroid Stimulating Hormone 3rd Gen 2.890 uIU/ML Vitals/IOs Vital Signs Date Time Temp Pulse Resp B/P (MAP) Pulse Ox O2 Delivery O2 Flow Rate FiO2 02/08/18 06:13 98.6 97 18 123/76 (92) 98 Assessment & Plan Problem List: (1) Major depressive disorder, single episode, severe without psychotic features ICD Codes: F32.2 - Major depressive disorder, single episode, severe without psychotic features (2) Polysubstance abuse ICD Codes: F19.10 - Other psychoactive substance abuse, uncomplicated Assessment & Plan Patient this time continues to feel depressed but states that his lessening and deny any suicide ideations today. We will continue quetiapine 50 mg p.o. at bedtime as patient did not receive his medication last evening with upward titration of 50 mg per night with a target dose of 150-300 mg for depression and mood stabilization. Diet will be changed to soft diet as patient likely having some soreness from recent intubation. If patient continues to have difficulty with sleep we will consider switching to trazodone for sleep disturbance. We will monitor mood and behavior. Discharge planning in progress. Justification for Cont. Inpt. At risk for further decompensation if at lower level of care Enrique Murray MD Feb 08, 2018 17:08
[2018-02-08 18:18] VITALS: BP 124/74; PULSE 88; RESP 17; TEMP 98.5; O2SAT 96
[2018-02-08] MEDS: QUEtiapine FUMARATE 25 MG TAB PO SCH (21:19)
[2018-02-09 05:20] VITALS: BP 111/63; PULSE 80; RESP 16; TEMP 98; O2SAT 95
[2018-02-09] MEDS: REMOVE OLD PATCH T-DERMAL SCH (09:00)
[2018-02-09] MEDS: NICOTINE 21 MG/24 HR PATCH T-DERMAL SCH (09:00)
[2018-02-09] MEDS ORDERED: INFLUENZA VIRUS VACCINE (QUADRIVALENT) 0.5 ML SYR IM ONE (10:00)
[2018-02-09] MEDS: LEVOFLOXACIN 750 MG TAB PO SCH (10:30)
[2018-02-09] MEDS ORDERED: BENZONATATE 100 MG CAP PO PRN (10:30)
--- NOTE | 2018-02-09 10:37 | PD.CONS ---
[facility] Service [facility] Hospitalists Consult Requested By Dr. Murray Reason for Consult Medical management; ?abx Primary Care Physician Unknown Diagnoses: (1) MRSA pneumonia History of Present Illness Patient is a 28 year old female admitted to the medical psychiatric unit. Hospitalist consult was requested to assist with medical management and possible antibiotics. She was recently admitted to the medical service following overdose. She was diagnosed with pneumonia at that time. Sputum culture grew MRSA. Patient was started on Levaquin. Today she reports cough that causes chest pain. She reports some shortness of breath as well. Denies fever. Review of Systems Constitutional: DENIES: Fever, Chills, Night Sweats Eyes: DENIES: Blurred vision, Vision loss Ears, nose, mouth, throat: DENIES: Hearing loss Respiratory: COMPLAINS OF: Cough, Sputum production, Shortness of breath, DENIES: Wheezing Cardiovascular: COMPLAINS OF: Chest pain, DENIES: Palpitations, Dyspnea on Exertion, Lower Extremity Edema Gastrointestinal: DENIES: Abdominal pain, Constipation, Diarrhea, Nausea, Vomiting Genitourinary: DENIES: Urinary frequency, Urinary incontinence, Urgency, Hematuria, Dysuria, Nocturia Musculoskeletal: DENIES: Joint pain, Muscle aches Integumentary: DENIES: Pruritus, Rash Hematologic/lymphatic: DENIES: Bruising Neurologic: DENIES: Headache Past Family Social History Allergies: Coded Allergies: No Allergy Information Available (Unverified , 02/04/18) GCS Past Medical History Diabetes mellitus Past Surgical History Appendectomy Reported Medications None Family History Mother had heart disease Social History Denies alcohol, tobacco, or illicit drug use. Urine drug screen was positive for opiates, amphetamines, and cocaine upon admission to the critical care service on 02/04/18. Physical Exam Vital Signs Vital Signs Date Time Temp Pulse Resp B/P (MAP) Pulse Ox O2 Delivery O2 Flow Rate FiO2 02/09/18 05:20 98.0 80 16 111/63 (79) 95 02/08/18 18:18 98.5 88 17 124/74 (91) 96 Physical Exam Patient examined in the presence of LILIANA Curran. GENERAL: Well-nourished, well-developed female in no acute distress. HEENT: Normocephalic, atraumatic. Pupils equal, round and reactive. Extraocular movements intact. No scleral icterus. No injection or drainage. Oropharynx is clear. Mucous membranes are moist. CARDIOVASCULAR: Regular rate and rhythm without murmurs, gallops, or rubs. RESPIRATORY: Mild crackles on left. Breathing is non-labored. GASTROINTESTINAL: Abdomen soft, non-tender, nondistended. EXTREMITIES: No lower extremity edema. No calf tenderness. PSYCH: Alert and oriented x 3. Result Diagram: 02/08/18 0850 Assessment and Plan Assessment and Plan 1. MRSA pneumonia: Resume antibiotics. Per sputum culture, sensitive to Levaquin. 2. Diabetes mellitus: Monitor Accu-Cheks and cover with sliding scale insulin. 3. Acute respiratory failure: Resolved. Patient is stable on room air. 4. Depression, polysubstance abuse: Management per psychiatry. Alexis Seymour MD Feb 09, 2018 10:37
[2018-02-09] MEDS ORDERED: GLUCAGON 1 MG/ML VIAL OTHER PRN (10:45)
[2018-02-09] MEDS ORDERED: DEXTROSE 50% IN WATER 50 ML VIAL(D50) IV PUSH PRN (10:45)
[2018-02-09] MEDS: INSULIN ASPART SUPPLEMENTAL SCALE SQ SCH ×3 (11:55→20:27)
[2018-02-09 12:18] LABS: BICARBONATE 23.8 MEQ/L (21.0-32.0); CALCIUM 9.5 MG/DL (8.5-10.1); CREATININE 0.69 MG/DL (0.50-1.00)
--- NOTE | 2018-02-09 12:44 | PD.TTN ---
Patient Problems 1. Discharge planning 2. Medication compliance 3. Knowledge deficit 4. Lack of coping skills Progress Toward Goals Provider Present: Dr. Js Dallas, Dr. Katiana Murray Provider Input: Dr. Murray reports titration of Seroquel, consideration of substance abuse in rehabilitation facility or as out-pt intervetion upon discharge. Nurse(s) Input: not present Psychiatric Counselors Present: Ariam Puri, [facility], Faith Juarez, [facility], Rj Anthony Jr., [facility], Colette Doty, [facility] Psych Therapist Input: Colette Weinstein reports on pt progress, agrees with MD Group Spec/RT/OT/OROSCO Present: KWESI Durant, Rodney Hodges, KAYLYN Group Spec/RT/OT/OROSCO Input: Rodney Driver; pt has been attending groups wearing mask per her droplet precautions, per nursing Occupational Therapist Input: Rodney Driver; Pt is insightful, adjusting well, stablizing. Documentation Scribe: Rodney Hodges MS, OTR Rodney Hodges OTR Feb 09, 2018 12:44
--- NOTE | 2018-02-09 15:45 | HHI.PYPN ---
Subjective Remarks Patient seen for follow, chart reviewed. Discussion nursing staff reported the patient slept well last night, noted to have hypokalemia. Patient was found lying hospital and noted B, cooperative. Patient states that she slept much better last evening with the start of quetiapine. Patient denies any adverse drug reactions to medication at this time. Patient reports feeling less depressed with denying any suicide ideations at this time. Patient continues with poor appetite. Patient reports having visited with her which went well yesterday. Patient denies any perceptual disturbances, no delusional material elicited today. Review of Systems Except as stated in HPI: all other systems reviewed are Neg Mental Status Examination Appearance: Appropriate Consciousness: Alert Orientation: x4 Speech: Unremarkable Language: Adequate Fund of Knowledge: Inadequate Attention and Concentration: Adequate Memory: Impaired (events surrouding overdose) Mood: Sad Affect: Sad Thought Process & Associations: Intact, Linear Thought Content: Appropriate Hallucination Type: None Delusion Type: None Suicidal Ideation: Yes (denies at this time) Suicidal Plan: No Suicidal Intention: No Homicidal Ideation: No Homicidal Plan: No Homicidal Intention: No Insight: Fair Judgment: Impulsive Results Labs Labs reviewed Test 02/09/18 11:09 Blood Urea Nitrogen 10 MG/DL Creatinine 0.69 MG/DL Random Glucose 86 MG/DL Calcium Level 9.5 MG/DL Sodium Level 140 MEQ/L Potassium Level 3.6 MEQ/L Chloride Level 105 MEQ/L Carbon Dioxide Level 23.8 MEQ/L Anion Gap 11 MEQ/L Estimat Glomerular Filtration Rate 100 ML/MIN Vitals/IOs Vital Signs Date Time Temp Pulse Resp B/P (MAP) Pulse Ox O2 Delivery O2 Flow Rate FiO2 02/09/18 05:20 98.0 80 16 111/63 (79) 95 Intake and Output 02/09/18 02/09/18 02/10/18 08:00 16:00 00:00 Intake Total 540 ml 1440 ml Balance 540 ml 1440 ml Assessment & Plan Problem List: (1) Major depressive disorder, single episode, severe without psychotic features ICD Codes: F32.2 - Major depressive disorder, single episode, severe without psychotic features (2) Polysubstance abuse ICD Codes: F19.10 - Other psychoactive substance abuse, uncomplicated Assessment & Plan Patient this time noted to have improvement in mood feeling less depressed today , denying any suicide ideations at this time. Recent lab work showed correction of hypokalemia and results are within normal limits. We will continue to titrate quetiapine to 100 mg at bedtime with upper titration with a target goal of 150-300 mg for mood stabilization. Continue rest of recommendations as per primary medical team. Continue to monitor mood and behavior. Discharge planning a progress. Justification for Cont. Inpt. At risk of further decompensation a lower level of care. Enrique Murray MD Feb 09, 2018 15:45
[2018-02-09 18:00] VITALS: BP 116/83; PULSE 106; RESP 16; TEMP 99.7; O2SAT 97
[2018-02-09] MEDS ORDERED: QUEtiapine FUMARATE 100 MG TAB PO SCH (21:00)
--- NOTE | 2018-02-09 23:31 | EKG ---
Date Performed: 02/08/2018 Time Performed: 13:22:29 PTAGE: 28 years EKG: Sinus rhythm NONSPECIFIC T-WAVE ABNORMALITY BORDERLINE ECG PREVIOUS TRACING : 02/04/2018 21.55 Since the previous tracing, no significant change noted DOCTOR: Blair Mendoza Interpretating Date/Time 02/09/2018 23:31:00
[2018-02-10] MEDS: diphenhydrAMINE HCL 50 MG CAP PO PRN (01:23)
[2018-02-10 05:34] VITALS: BP 116/61; PULSE 103; RESP 16; TEMP 98.2; O2SAT 97
[2018-02-10] MEDS: INSULIN ASPART SUPPLEMENTAL SCALE SQ SCH (08:00)
[2018-02-10] MEDS: REMOVE OLD PATCH T-DERMAL SCH (08:41)
[2018-02-10] MEDS: NICOTINE 21 MG/24 HR PATCH T-DERMAL SCH (08:41)
[2018-02-10] MEDS: LEVOFLOXACIN 750 MG TAB PO SCH (08:41)
[2018-02-10] MEDS ORDERED: PILL SPLITTER OTHER PRN (10:45)
--- NOTE | 2018-02-10 11:10 | HHI.PR ---
Subjective Remarks Follow-up visit for MRSA pneumonia. Patient is seen and examined in bed in no acute distress. She reports ongoing cough which is increased with lying down, denies any shortness of breath, fevers, chills, nausea, vomiting or diarrhea. Nurse reports patient will possibly be discharged tomorrow. Objective Vitals Vital Signs Date Time Temp Pulse Resp B/P (MAP) Pulse Ox O2 Delivery O2 Flow Rate FiO2 02/10/18 05:34 98.2 103 16 116/61 (79) 97 02/09/18 18:00 99.7 106 16 116/83 (94) 97 I/O 02/09/18 02/09/18 02/09/18 02/10/18 02/10/18 02/10/18 07:00 15:00 23:00 07:00 15:00 23:00 Intake Total 60 ml 1920 ml 240 ml 360 ml 360 ml Balance 60 ml 1920 ml 240 ml 360 ml 360 ml Intake Oral 60 ml 1920 ml 240 ml 360 ml 360 ml # Voids 1 1 Result Diagram: 02/09/18 1109 Objective Remarks GENERAL: Well-nourished, well-developed female in no acute distress. HEENT: Normocephalic, atraumatic. Pupils equal, round. No scleral icterus. No injection or drainage. Mucous membranes are moist. CARDIOVASCULAR: Regular rate and rhythm without murmurs, gallops, or rubs. RESPIRATORY: Breath sounds clear throughout. Breathing is non-labored. GASTROINTESTINAL: Abdomen soft, non-tender, nondistended. EXTREMITIES: No lower extremity edema. No calf tenderness. PSYCH: Alert and oriented x 3. A/P Problem List: (1) MRSA pneumonia ICD Code: J15.212 - Pneumonia due to Methicillin resistant Staphylococcus aureus Assessment and Plan 28-year-old female with past medical history significant for depression with recent overdose requiring mechanical ventilation. Treated for pneumonia, sputum growing MRSA. Patient was admitted to medical psychiatry unit, [place] consulted to assist with ongoing medical management. Depression Overdose -Treatment plan per psychiatry, greatly appreciated. -Patient will most likely discharge tomorrow and follow-up with [facility] MRSA pneumonia (pansensitive) -Patient with ongoing occasional coughing, oxygen saturation stable on room air, intermittent SOB with lying flat. Low-grade temp noted yesterday night of 99.7, pt's. temp tends to run on the higher side, no other symptoms noted, does not appear ill. -Encourage patient to use Tessalon Perles as needed for cough, to complete p.o. Levaquin on 02/16 -Tessalon Perles and Levaquin Rx placed in chart Hyperglycemia -Accu-Cheks have been stable, discontinue monitoring and sliding scale. DVT prophylaxis-ambulation Discussed with patient and RN Problem Qualifiers (1) MRSA pneumonia: Qualified Codes: J15.212 - Pneumonia due to methicillin resistant Staphylococcus aureus Jia Rincon Feb 10, 2018 11:10
[2018-02-10] MEDS ORDERED: LEVA750T9 PO (11:15)
[2018-02-10] MEDS ORDERED: BENZ100 PO (11:15)
--- NOTE | 2018-02-10 11:24 | HHI.PYPN ---
Subjective Remarks Patient seen for follow, chart reviewed. Discussion nursing staff reported the patient has a compliant medications, continues to have poor appetite. Patient was found sitting in hospital bed noted, cooperative. Patient states that she is feeling better not as depressed, denying any suicide ideations at this time. Patient continues report having poor appetite although states she is trying to eat better. She reports that her energy has improved, slept better last evening, states that she wants to continue outpatient treatment for herself, her son and for her life. Patient states that her has been supportive. Review of Systems Except as stated in HPI: all other systems reviewed are Neg Mental Status Examination Appearance: Appropriate Consciousness: Alert Orientation: x4 Speech: Unremarkable Language: Adequate Fund of Knowledge: Inadequate Attention and Concentration: Adequate Memory: Impaired (events surrouding overdose) Mood: Sad Affect: Sad Thought Process & Associations: Intact, Goal directed, Linear Thought Content: Appropriate Hallucination Type: None Delusion Type: None Suicidal Ideation: Yes (denies at this time) Suicidal Plan: No Suicidal Intention: No Homicidal Ideation: No Homicidal Plan: No Homicidal Intention: No Insight: Fair Judgment: Impulsive Results Vitals/IOs Vital Signs Date Time Temp Pulse Resp B/P (MAP) Pulse Ox O2 Delivery O2 Flow Rate FiO2 02/10/18 05:34 98.2 103 16 116/61 (79) 97 Intake and Output 02/10/18 02/10/18 02/11/18 08:00 16:00 00:00 Intake Total 360 ml 360 ml Balance 360 ml 360 ml Assessment & Plan Problem List: (1) Major depressive disorder, single episode, severe without psychotic features ICD Codes: F32.2 - Major depressive disorder, single episode, severe without psychotic features (2) Polysubstance abuse ICD Codes: F19.10 - Other psychoactive substance abuse, uncomplicated Assessment & Plan Patient with improvement in mood, feeling less depressed, denying suicide ideations at this time, although appetite continues to be suboptimal she continues to try to eat adequately. We will continue to titrate quetiapine to 150 mg p.o. at bedtime for mood stabilization. Patient likely for discharge tomorrow with plan to follow outpatient appointments and engage in rehabilitation program for substance use. Continue to monitor mood and behavior. Discharge planning a progress. Justification for Cont. Inpt. At risk of further decompensation a lower level care Discharge Planning Patient return back to her residence was psychiatrically stable. Enrique Murray MD Feb 10, 2018 11:24
[2018-02-10] MEDS ORDERED: QUEtiapine FUMARATE 100 MG TAB PO SCH (21:00)
[2018-02-11 06:09] VITALS: BP 122/74; PULSE 87; RESP 18; TEMP 98.1; O2SAT 97
[2018-02-11] MEDS: LEVOFLOXACIN 750 MG TAB PO SCH (08:03)
[2018-02-11] MEDS: REMOVE OLD PATCH T-DERMAL SCH (09:00)
[2018-02-11] MEDS: NICOTINE 21 MG/24 HR PATCH T-DERMAL SCH (09:00)
[2018-02-11] MEDS ORDERED: QUET1TAB8 PO (10:31)
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
== END 2018-02-11 11:00 | disposition home or self-care (01) | DRG 885 ==
LOC: H260 17:00 → H4EA 21:15 → H260 02-10 16:58 → H250 02-10 17:48
PROVIDERS: ADMIT Student in an Organized Health Care Education/Training Program; ATTEND Student in an Organized Health Care Education/Training Program
DX: F32.2 Major depressive disorder, single episode, severe without psychotic features (principal); J15.212 Pneumonia due to Methicillin resistant Staphylococcus aureus; F19.10 Other psychoactive substance abuse, uncomplicated; E11.65 Type 2 diabetes mellitus with hyperglycemia
CPT/HCPCS: 80048; 80061; 82948; 83036; 84443; 93005; Q0163